=== PATIENT | female | born 1965 | race Caucasian/White ===

== ENCOUNTER 2022-08-26 12:54 | Inpatient (IN) | payer OTHER ==
--- OUTSIDE RECORDS SUMMARY | 2022-08-26 13:05 | XMS REPORT | Continuity of Care Document ---
:1965 Author Organization [facility] t Address [address] [place] [address] Dr. Prinec. [address] [place] [id number] Care Team Providers Name Role Phone Tho Conklin Attending Clinician Unavailable Problems This patient has no known problems. Allergies, Adverse Reactions, Alerts This patient has no known allergies or adverse reactions. Medications This patient has no known medications. Procedures This patient has no known procedures. Encounters Start End Encounter Admission Attending Care Care Encounter Source Date/Time Date/Time Type Type Clinicians Facility Department ID 2018-12-23 2018-12-23 Outpatient ELLEN Conklin [id number] [facility] 09:14:00 09:14:00 Tho Cobos 2018-12-23 2018-12-23 Outpatient ELLEN Conklin [id number] [facility] 08:56:00 08:56:00 Tho Cobos Results This patient has no known results.
--- NOTE | 2022-08-26 13:19 | RAD REPORT ---
EXAM DESCRIPTION: CT - Ct Stroke Brain Wo Cont - 08/26/2022 1:08 pm CLINICAL HISTORY: Left arm numbness COMPARISON: none TECHNIQUE: Computed axial tomography of the head was obtained. All CT scans are performed using dose optimization technique as appropriate and may include automated exposure control or mA/KV adjustment according to patient size. FINDINGS: An intracranial bleed is not seen . The ventricles are normal in caliber. No extra-axial fluid collection is noted. 1 centimeter low-density area right internal capsule Fluid within the sinuses/ mastoids is not seen. IMPRESSION: 1 centimeter low-density area right internal capsule probably lacunar infarct. Age is in determinate. MRI brain would helpful. Shannan of the emergency room notified 1:12 p.m. August 26, 2022
[2022-08-26 14:03] LABS: Absolute Lymphocytes (CBC) 1.7 K/uL (0.7-4.9); Hematocrit 37.2 % (36.0-45.0); Lymphocytes % 11.5 % (15.3-44.8); MCV 82.5 fL (80-100); MPV 6.8 fL (7.6-11.3); RBC Red Blood Cell Count 4.51 M/uL (3.86-4.86)
[2022-08-26] MEDS ORDERED: ATORVASTATIN 20 MG TAB ONE (14:05)
[2022-08-26] MEDS ORDERED: TENECTEPLASE 50 MG/10 ML VIAL IV ONE (14:06)
[2022-08-26 14:07] LABS: Protime INR 1.11
[2022-08-26] MEDS ORDERED: FOLIC ACID 5 MG/ML VIAL ONE (14:08)
[2022-08-26] MEDS ORDERED: ATORVASTATIN 80 MG TAB ONE (14:09)
[2022-08-26 14:18] LABS: Potassium 3.3 mmol/L (3.5-5.1)
--- NOTE | 2022-08-26 14:19 | RAD REPORT ---
EXAM DESCRIPTION: Marie Angio08/26/2022 2:02 pm CLINICAL HISTORY: Numbness COMPARISON: None TECHNIQUE: 50 cc Isovue 370 was administered intravenously. 3D MIP reconstruction performed All CT scans are performed using dose optimization technique as appropriate and may include automated exposure control or mA/KV adjustment according to patient size. FINDINGS: Mild plaque is present within common carotid, internal carotid and external carotid arteri es bilaterally. Right common carotid artery is tortuous Right vertebral artery is dominant. Left vertebral artery is hypoplastic. No high-grade stenosis seen. No dissection noted IMPRESSION: Mild plaque within the arteries. No high-grade stenosis seen NASCET criteria used. Mild 0-49% stenosis Moderate 50-69% stenosis Severe 70-99% stenosis
--- NOTE | 2022-08-26 14:20 | RAD REPORT ---
EXAM DESCRIPTION: CTHead angio08/26/2022 2:02 pm CLINICAL HISTORY: Numbness COMPARISON: None TECHNIQUE: CT angiogram of the head was obtained. 3D MIPS reconstruction performed. All CT scans are performed using dose optimization technique as appropriate and may include automated exposure control or mA/KV adjustment according to patient size. FINDINGS: The basilar, internal carotid, anterior cerebral, middle cerebral and posterior cerebral a rteries are normal caliber. An aneurysm is not seen. A significant stenosis is not noted. IMPRESSION: No acute abnormality is displayed
--- NOTE | 2022-08-26 14:29 | RAD REPORT ---
EXAM DESCRIPTION: CT - Angio Aorta For Dissection - 08/26/2022 2:03 pm CLINICAL HISTORY: . Chest and abd pain COMPARISON: None TECHNIQUE: Computed tomography angiography of the chest, abdomen pelvis were obtained. 100 cc Isovue 370 was administered intravenously. Coronal and sagittal reconstruction were performed. MIP 3D reconstruction was performed All CT scans are performed using dose optimization technique as appropriate and may include automated exposure control or mA/KV adjustment according to patient size. FINDINGS: An aortic dissection is not seen. An aortic aneurysm is not displayed. Mild plaque within the celiac and SMA. NILDA is patent. Mild plaque within abdominal aorta. A lung consolidation is not present. A pericardial effusion is not seen. A pleural effusion is not no maite. The liver,spleen, pancreas,adrenals and kidneys demonstrate no significant abnormality. There no evidence diverticulitis. Normal appendix 3.3 centimeter left ovarian cyst without significant free fluid Mild to moderate anterior subluxation L5 on S1. Spondylolysis L5 9 millimeter well-circumscribed mass right breast. Nonemergent mammogram recommended IMPRESSION: Negative for an aortic dissection.
--- NOTE | 2022-08-26 14:31 | RAD REPORT ---
EXAM DESCRIPTION: Azul Single View08/26/2022 1:32 pm CLINICAL HISTORY: Chest pain COMPARISON: 2019 FINDINGS: The lungs appear clear of acute infiltrate. The heart is normal size IMPRESSION: No acute abnormalities displayed
--- NOTE | 2022-08-26 15:07 | ER ---
Nurse's Notes [facility] Name: Lena Ambrocio Age: 57 yrs Sex: Female : 1965 Arrival Date: 08/26/2022 Time: 13:02 Bed 16 Private MD: Diagnosis: Cerebral infarct Presentation: 08/26 13:02 Chief complaint: Pt's states "she was at the nail salon getting her nails done aa5 when she started feeling her left arm go numb and having double vision, she drove back home and I brought her here". Sling noted to left arm, pt reports elbow fracture 2 weeks ago. Pt appears confused when answering questions. Pt reports double vision at this time. 13:02 Acuity: MONICA 2 aa5 13:02 Method Of Arrival: Wheelchair aa5 13:15 Coronavirus screen: Vaccine status:. Ebola Screen: Patient negative for fever greater em6 than or equal to 101.5 degrees Fahrenheit, and additional compatible Ebola Virus Disease symptoms. Initial Sepsis Screen: Does the patient meet any 2 criteria? No. Patient's initial sepsis screen is negative. Does the patient have a suspected source of infection? No. Patient's initial sepsis screen is negative. Risk Assessment: Do you want to hurt yourself or someone else? Patient reports no desire to harm self or others. Onset of symptoms was August 26, 2022 at 12:30. 13:49 No acute neurological deficit is noted. The patients blood glucose was checked before em6 arriving to the hospital and was found to be normal. Triage Assessment: 13:53 The onset of the patients symptoms was August 26, 2022 at 12:30. General: Appears in em6 no apparent distress. Behavior is cooperative. 13:56 Neuro: Reports blurred vision. em6 Stroke Activation: Symptom onset < 3 hours Physician: Stroke Attending; Name: ; Notified At: ; Arrived At: Physician: Chief Stroke Resident; Name: ; Notified At: ; Arrived At: Physician: Stroke Resident; Name: ; Notified At: ; Arrived At: Physician: ED Attending; Name: ; Notified At: ; Arrived At: Physician: ED Resident; Name: ; Notified At: ; Arrived At: Historical: - Allergies: 13:54 No Known Allergies; em6 - Home Meds: 13:54 amlodipine oral [Active]; Acetaminophen Oral [Active]; Ibuprofen Oral [Active]; em6 - PMHx: 13:54 Hypertensive disorder; em6 - Immunization history:: Adult Immunizations unknown. - Social history:: Smoking status: unknown. Screenin:46 Abuse screen: Denies threats or abuse. Nutritional screening: No deficits noted. em6 Tuberculosis screening: No symptoms or risk factors identified. Fall Risk No fall in past 12 months (0 pts). Secondary diagnosis (15 points) possible stroke. IV access (20 points). Ambulatory Aid- None/Bed Rest/Nurse Assist (0 pts). Gait- Impaired (20 pts.). Mental Status- Oriented to own ability (0 pts). Total Christian Fall Scale indicates High Risk Score (45 or more points). Assessment: 13:14 Reassessment: Pt back from CT scan . aa5 13:15 VAN Scoring: Arm Drift: Patients demonstrates NO arm weakness. Patient is VAN Negative. em6 Visual Disturbance:. The patient has not been NPO before screening. The patient is alert, and able to follow commands. The patient does not exhibit slurred or garbled speech. The patient is not exhibiting difficulty speaking. The patient does not exhibit difficulty understanding words. The patient is able to swallow own secretions with no drooling or need for suction. Patient tolerated one teaspoon of water. No drooling, immediate coughing, gurgling, or clearing of the throat was noted. The patient tolerated 90mL of water. No drooling, immediate coughing, gurgling, or clearing of the throat was noted. The patient passed the bedside swallow screening. Oral medications may be given as ordered. Contact Physician for further diet orders. Provider notified of bedside swallow screening results: Jose Addison NP. 13:15 TNKase (Tenecteplase) Screening: Indications: Definite evidence of stroke, ischemic, em6 embolic, or hypertensive: Yes. Treatment will start within 4.5 hours onset of symptoms: Yes. No evidence of intracranial hemorrhage or CT of head and no evidence of peripheral hemorrhage or recent CVA: Yes. Consent for thrombolytic therapy: Yes. 13:17 General: Appears uncomfortable, Behavior is cooperative, anxious. Pain: Complains of em6 pain in left arm Pain does not radiate. Pain level that patient reports is acceptable is 1 out of 10 on a pain scale. Quality of pain is described as sharp, Pain began 08/07/22 she has elbow fracture. she's currently on the sling. Neuro: Level of Consciousness is awake, alert, obeys commands, Oriented to person, place, time, situation, Stripper Cutter Machine are equal bilaterally Moves all extremities. Speech is normal, Facial symmetry appears normal, Pupils are PERRLA, Intact Reports blurred vision in left eye Denies headache. Cardiovascular: Heart tones present Patient's skin is warm and dry. Rhythm is sinus rhythm Chest pain is denied. Respiratory: Airway is patent Trachea midline Respiratory effort is even, unlabored, Respiratory pattern is regular, symmetrical, Breath sounds are clear bilaterally. GI: No signs and/or symptoms were reported involving the gastrointestinal system. : No signs and/or symptoms were reported regarding the genitourinary system. EENT: No signs and/or symptoms were reported regarding the EENT system. Derm: No signs and/or symptoms reported regarding the dermatologic system. Musculoskeletal: Range of motion: limited in left shoulder she had a fracture on 08/07/22 limited movement on shoulder due to pain with movement. 14:22 Reassessment: TNK medication given see TNK vital signs flow sheath.. em6 16:00 Reassessment: No changes from previously documented assessment. Patient and/or family jd3 updated on plan of care and expected duration. Pain level reassessed. Patient is alert, oriented x 3, equal unlabored respirations, skin warm/dry/pink. Patient states feeling better. 17:00 Reassessment: Patient and/or family updated on plan of care and expected duration. Pain jd3 level reassessed. Patient is alert, oriented x 3, equal unlabored respirations, skin warm/dry/pink. 18:00 Reassessment: Patient and/or family updated on plan of care and expected duration. Pain jd3 level reassessed. Patient is alert, oriented x 3, equal unlabored respirations, skin warm/dry/pink. 18:40 Reassessment: report attempt made. ICU reported to busy. jd3 19:15 Reassessment: Patient appears in no apparent distress at this time. Patient and/or jb4 family updated on plan of care and expected duration. Pain level reassessed. Patient is alert, oriented x 3, equal unlabored respirations, skin warm/dry/pink. Vital Signs: 13:15 BP 193 / 93; Pulse 81; Resp 20; Temp 98.1; Pulse Ox 97% on R/A; Weight 86.18 kg; Height em6 5 ft. 2 in. (157.48 cm); Pain 5/10; 14:22 BP 213 / ???; Pulse 93; Resp 20; Pulse Ox 96% on R/A; em6 14:37 BP 202 / 87; Pulse 86; Resp 20; Pulse Ox 95% on R/A; em6 14:52 BP 185 / 86; Pulse 75; Resp 18; Pulse Ox 95% on R/A; em6 15:30 BP 175 / 85; Pulse 81; Resp 16; Pulse Ox 96% on R/A; jd3 16:30 BP 178 / 84; Pulse 77; Resp 16; Pulse Ox 97% on R/A; jd3 17:45 BP 169 / 78; Pulse 71; Resp 16 S; Pulse Ox 96% on R/A; jd3 18:54 Pulse 80; Resp 17 S; Pulse Ox 100% on R/A; jd3 19:30 BP 165 / 99; Pulse 80; Resp 16; Pulse Ox 96% on R/A; jb4 13:15 Body Mass Index 34.75 (86.18 kg, 157.48 cm) em6 NIH Stroke Scale Scores: 13:15 NIHSS Score: 0 em6 13:31 NIHSS Score: 1 pm1 14:22 NIHSS Score: 0 em6 14:37 NIHSS Score: 0 em6 14:52 NIHSS Score: 0 em6 15:07 NIHSS Score: 0 em6 15:22 NIHSS Score: 0 em6 16:20 NIHSS Score: 0 jd3 17:20 NIHSS Score: 0 jd3 18:20 NIHSS Score: 0 jd3 ED Course: 13:02 Patient arrived in ED. iw 13:02 Arm band placed on. aa5 13:09 CT Stroke Brain w/o Contrast In Process Unspecified. EDMS 13:12 Jose Addison NP is PHCP. pm1 13:12 Rex Griggs MD is Attending Physician. pm1 13:15 Inserted saline lock: 22 gauge in right antecubital area, using aseptic technique. em6 Blood collected. placed by associate project manager. 13:18 Triage completed. aa5 13:28 Mcneill, Chuy, RN is Primary Nurse. jd3 13:34 Stroke CXR 1 View In Process Unspecified. EDMS 13:56 Patient has correct armband on for positive identification. laboratory monitor on. Pulse em6 ox on. NIBP on. Warm blanket given. 14:04 CT Head Angio In Process Unspecified. EDMS 14:04 CT Neck Angio In Process Unspecified. EDMS 14:05 CT Aorta for Dissection In Process Unspecified. EDMS 15:01 Enrique Rubin MD is Hospitalizing Provider. pm1 Administered Medications: 14:22 Drug: TNK FOR STROKE - Tenecteplase 0.25 mg/kg {Co-Signature: jjohn (Chuy Mcneill RN).} Route: IV; Rate: per protocol; Site: right antecubital; 15:22 Follow up: Response: No adverse reaction; IV Status: Completed infusion jd3 14:25 Drug: foLIC Acid 1 mg Route: IVPB; Site: right antecubital; em6 15:25 Follow up: Response: No adverse reaction; IV Status: Completed infusion jd3 14:25 Drug: Atorvastatin 80 mg Route: PO; em6 17:25 Follow up: Response: No adverse reaction jd3 15:45 Drug: NS 0.9% 500 ml Route: IV; Rate: bolus; Site: right antecubital; em6 16:45 Follow up: Response: No adverse reaction; IV Status: Completed infusion jd3 15:45 Drug: NS 0.9% 1000 ml Route: IV; Rate: 125 ml/hr; Site: right antecubital; em6 18:51 Follow up: Response: No adverse reaction; IV Status: Infusion continued upon admission jd3 15:50 Drug: Potassium Chloride 40 mEq Route: PO; em6 16:50 Follow up: Response: No adverse reaction jd3 Medication: 18:38 VIS not applicable for this client. jd3 Point of Care Testing: Blood Glucose: 13:56 Blood Glucose: 72 mg/dL; em6 Ranges: Outcome: 15:06 Decision to Hospitalize by Provider. pm1 20:23 Patient left the ED. mw2 NIH Stroke Scale - NIH Stroke Score Date: 08/26/2022 Time: 13:15 Total Score = 0 1a. Level of Consciousness (LOC) - 0(Alert) 1b. Level of Consciousness (LOC) (Month \\T\\ Age) - 0(Both) 1c. LOC Commands (Open \\T\\ Closes Eyes/Assembly Leader) - 0(Both) 2. Best Gaze (Lateral Gaze Paresis) - 0(Normal) 3. Visual Field Loss - 0(No visual loss) 4. Facial Palsy - 0(Normal) 5a. Left Arm: Motor (10-second hold) - 0(No drift) 5b. Right Arm: Motor (10-second hold) - 0(No drift) 6a. Left Leg: Motor (5-second hold - always test supine) - 0(No drift) 6b. Right Leg: Motor (5-second hold - always test supine) - 0(No drift) 7. Limb Ataxia (finger/nose \\T\\ heel/foy - test with eyes open) - 0(Absent) 8. Sensory Loss (pinprick arms/legs/face) - 0(Normal) 9. Best Language: Aphasia (description/naming/reading) - 0(No aphasia) 10. Dysarthria (speech clarity - read or repeat words) - 0(Normal) 11. Extinction and Inattention (visual/tactile/auditory/spatial/personal) - 0(No abnormality) Initials: em6 NIH Stroke Scale - NIH Stroke Score Date: 08/26/2022 Time: 13:31 Total Score = 1 1a. Level of Consciousness (LOC) - 0(Alert) 1b. Level of Consciousness (LOC) (Month \\T\\ Age) - 0(Both) 1c. LOC Commands (Open \\T\\ Closes Eyes/Assembly Leader) - 0(Both) 2. Best Gaze (Lateral Gaze Paresis) - 0(Normal) 3. Visual Field Loss - 0(No visual loss) 4. Facial Palsy - 0(Normal) 5a. Left Arm: Motor (10-second hold) - 0(No drift) 5b. Right Arm: Motor (10-second hold) - 0(No drift) 6a. Left Leg: Motor (5-second hold - always test supine) - 0(No drift) 6b. Right Leg: Motor (5-second hold - always test supine) - 0(No drift) 7. Limb Ataxia (finger/nose \\T\\ heel/foy - test with eyes open) - 0(Absent) 8. Sensory Loss (pinprick arms/legs/face) - 0(Normal) 9. Best Language: Aphasia (description/naming/reading) - 1(Mild to moderate aphasia) 10. Dysarthria (speech clarity - read or repeat words) - 0(Normal) 11. Extinction and Inattention (visual/tactile/auditory/spatial/personal) - 0(No abnormality) Initials: pm1 NIH Stroke Scale - NIH Stroke Score Date: 08/26/2022 Time: 14:22 Total Score = 0 1a. Level of Consciousness (LOC) - 0(Alert) 1b. Level of Consciousness (LOC) (Month \\T\\ Age) - 0(Both) 1c. LOC Commands (Open \\T\\ Closes Eyes/Assembly Leader) - 0(Both) 2. Best Gaze (Lateral Gaze Paresis) - 0(Normal) 3. Visual Field Loss - 0(No visual loss) 4. Facial Palsy - 0(Normal) 5a. Left Arm: Motor (10-second hold) - 0(No drift) 5b. Right Arm: Motor (10-second hold) - 0(No drift) 6a. Left Leg: Motor (5-second hold - always test supine) - 0(No drift) 6b. Right Leg: Motor (5-second hold - always test supine) - 0(No drift) 7. Limb Ataxia (finger/nose \\T\\ heel/foy - test with eyes open) - 0(Absent) 8. Sensory Loss (pinprick arms/legs/face) - 0(Normal) 9. Best Language: Aphasia (description/naming/reading) - 0(No aphasia) 10. Dysarthria (speech clarity - read or repeat words) - 0(Normal) 11. Extinction and Inattention (visual/tactile/auditory/spatial/personal) - 0(No abnormality) Initials: em6 NIH Stroke Scale - NIH Stroke Score Date: 08/26/2022 Time: 14:37 Total Score = 0 1a. Level of Consciousness (LOC) - 0(Alert) 1b. Level of Consciousness (LOC) (Month \\T\\ Age) - 0(Both) 1c. LOC Commands (Open \\T\\ Closes Eyes/Assembly Leader) - 0(Both) 2. Best Gaze (Lateral Gaze Paresis) - 0(Normal) 3. Visual Field Loss - 0(No visual loss) 4. Facial Palsy - 0(Normal) 5a. Left Arm: Motor (10-second hold) - 0(No drift) 5b. Right Arm: Motor (10-second hold) - 0(No drift) 6a. Left Leg: Motor (5-second hold - always test supine) - 0(No drift) 6b. Right Leg: Motor (5-second hold - always test supine) - 0(No drift) 7. Limb Ataxia (finger/nose \\T\\ heel/foy - test with eyes open) - 0(Absent) 8. Sensory Loss (pinprick arms/legs/face) - 0(Normal) 9. Best Language: Aphasia (description/naming/reading) - 0(No aphasia) 10. Dysarthria (speech clarity - read or repeat words) - 0(Normal) 11. Extinction and Inattention (visual/tactile/auditory/spatial/personal) - 0(No abnormality) Initials: [facility] NIH Stroke Scale - NIH Stroke Score Date: 08/26/2022 Time: 14:52 Total Score = 0 1a. Level of Consciousness (LOC) - 0(Alert) 1b. Level of Consciousness (LOC) (Month \\T\\ Age) - 0(Both) 1c. LOC Commands (Open \\T\\ Closes Eyes/Assembly Leader) - 0(Both) 2. Best Gaze (Lateral Gaze Paresis) - 0(Normal) 3. Visual Field Loss - 0(No visual loss) 4. Facial Palsy - 0(Normal) 5a. Left Arm: Motor (10-second hold) - 0(No drift) 5b. Right Arm: Motor (10-second hold) - 0(No drift) 6a. Left Leg: Motor (5-second hold - always test supine) - 0(No drift) 6b. Right Leg: Motor (5-second hold - always test supine) - 0(No drift) 7. Limb Ataxia (finger/nose \\T\\ heel/foy - test with eyes open) - 0(Absent) 8. Sensory Loss (pinprick arms/legs/face) - 0(Normal) 9. Best Language: Aphasia (description/naming/reading) - 0(No aphasia) 10. Dysarthria (speech clarity - read or repeat words) - 0(Normal) 11. Extinction and Inattention (visual/tactile/auditory/spatial/personal) - 0(No abnormality) Initials: [facility] NIH Stroke Scale - NIH Stroke Score Date: 08/26/2022 Time: 15:07 Total Score = 0 1a. Level of Consciousness (LOC) - 0(Alert) 1b. Level of Consciousness (LOC) (Month \\T\\ Age) - 0(Both) 1c. LOC Commands (Open \\T\\ Closes Eyes/Assembly Leader) - 0(Both) 2. Best Gaze (Lateral Gaze Paresis) - 0(Normal) 3. Visual Field Loss - 0(No visual loss) 4. Facial Palsy - 0(Normal) 5a. Left Arm: Motor (10-second hold) - 0(No drift) 5b. Right Arm: Motor (10-second hold) - 0(No drift) 6a. Left Leg: Motor (5-second hold - always test supine) - 0(No drift) 6b. Right Leg: Motor (5-second hold - always test supine) - 0(No drift) 7. Limb Ataxia (finger/nose \\T\\ heel/foy - test with eyes open) - 0(Absent) 8. Sensory Loss (pinprick arms/legs/face) - 0(Normal) 9. Best Language: Aphasia (description/naming/reading) - 0(No aphasia) 10. Dysarthria (speech clarity - read or repeat words) - 0(Normal) 11. Extinction and Inattention (visual/tactile/auditory/spatial/personal) - 0(No abnormality) Initials: em6 NIH Stroke Scale - NIH Stroke Score Date: 08/26/2022 Time: 15:22 Total Score = 0 1a. Level of Consciousness (LOC) - 0(Alert) 1b. Level of Consciousness (LOC) (Month \\T\\ Age) - 0(Both) 1c. LOC Commands (Open \\T\\ Closes Eyes/Assembly Leader) - 0(Both) 2. Best Gaze (Lateral Gaze Paresis) - 0(Normal) 3. Visual Field Loss - 0(No visual loss) 4. Facial Palsy - 0(Normal) 5a. Left Arm: Motor (10-second hold) - 0(No drift) 5b. Right Arm: Motor (10-second hold) - 0(No drift) 6a. Left Leg: Motor (5-second hold - always test supine) - 0(No drift) 6b. Right Leg: Motor (5-second hold - always test supine) - 0(No drift) 7. Limb Ataxia (finger/nose \\T\\ heel/foy - test with eyes open) - 0(Absent) 8. Sensory Loss (pinprick arms/legs/face) - 0(Normal) 9. Best Language: Aphasia (description/naming/reading) - 0(No aphasia) 10. Dysarthria (speech clarity - read or repeat words) - 0(Normal) 11. Extinction and Inattention (visual/tactile/auditory/spatial/personal) - 0(No abnormality) Initials: em6 NIH Stroke Scale - NIH Stroke Score Date: 08/26/2022 Time: 16:20 Total Score = 0 1a. Level of Consciousness (LOC) - 0(Alert) 1b. Level of Consciousness (LOC) (Month \\T\\ Age) - 0(Both) 1c. LOC Commands (Open \\T\\ Closes Eyes/Assembly Leader) - 0(Both) 2. Best Gaze (Lateral Gaze Paresis) - 0(Normal) 3. Visual Field Loss - 0(No visual loss) 4. Facial Palsy - 0(Normal) 5a. Left Arm: Motor (10-second hold) - 0(No drift) 5b. Right Arm: Motor (10-second hold) - 0(No drift) 6a. Left Leg: Motor (5-second hold - always test supine) - 0(No drift) 6b. Right Leg: Motor (5-second hold - always test supine) - 0(No drift) 7. Limb Ataxia (finger/nose \\T\\ heel/foy - test with eyes open) - 0(Absent) 8. Sensory Loss (pinprick arms/legs/face) - 0(Normal) 9. Best Language: Aphasia (description/naming/reading) - 0(No aphasia) 10. Dysarthria (speech clarity - read or repeat words) - 0(Normal) 11. Extinction and Inattention (visual/tactile/auditory/spatial/personal) - 0(No abnormality) Initials: jd3 NIH Stroke Scale - NIH Stroke Score Date: 08/26/2022 Time: 17:20 Total Score = 0 1a. Level of Consciousness (LOC) - 0(Alert) 1b. Level of Consciousness (LOC) (Month \\T\\ Age) - 0(Both) 1c. LOC Commands (Open \\T\\ Closes Eyes/Assembly Leader) - 0(Both) 2. Best Gaze (Lateral Gaze Paresis) - 0(Normal) 3. Visual Field Loss - 0(No visual loss) 4. Facial Palsy - 0(Normal) 5a. Left Arm: Motor (10-second hold) - 0(No drift) 5b. Right Arm: Motor (10-second hold) - 0(No drift) 6a. Left Leg: Motor (5-second hold - always test supine) - 0(No drift) 6b. Right Leg: Motor (5-second hold - always test supine) - 0(No drift) 7. Limb Ataxia (finger/nose \\T\\ heel/foy - test with eyes open) - 0(Absent) 8. Sensory Loss (pinprick arms/legs/face) - 0(Normal) 9. Best Language: Aphasia (description/naming/reading) - 0(No aphasia) 10. Dysarthria (speech clarity - read or repeat words) - 0(Normal) 11. Extinction and Inattention (visual/tactile/auditory/spatial/personal) - 0(No abnormality) Initials: [facility] NIH Stroke Scale - NIH Stroke Score Date: 08/26/2022 Time: 18:20 Total Score = 0 1a. Level of Consciousness (LOC) - 0(Alert) 1b. Level of Consciousness (LOC) (Month \\T\\ Age) - 0(Both) 1c. LOC Commands (Open \\T\\ Closes Eyes/Assembly Leader) - 0(Both) 2. Best Gaze (Lateral Gaze Paresis) - 0(Normal) 3. Visual Field Loss - 0(No visual loss) 4. Facial Palsy - 0(Normal) 5a. Left Arm: Motor (10-second hold) - 0(No drift) 5b. Right Arm: Motor (10-second hold) - 0(No drift) 6a. Left Leg: Motor (5-second hold - always test supine) - 0(No drift) 6b. Right Leg: Motor (5-second hold - always test supine) - 0(No drift) 7. Limb Ataxia (finger/nose \\T\\ heel/foy - test with eyes open) - 0(Absent) 8. Sensory Loss (pinprick arms/legs/face) - 0(Normal) 9. Best Language: Aphasia (description/naming/reading) - 0(No aphasia) 10. Dysarthria (speech clarity - read or repeat words) - 0(Normal) 11. Extinction and Inattention (visual/tactile/auditory/spatial/personal) - 0(No abnormality) Initials: jorge luis Signatures: Dispatcher [employer] EDMS Taylor Ortiz RN BRYCE iw Hannah Schneider RN RN aa5 Jose Addison, CEMENT MIXER DRIVER CEMENT MIXER DRIVER pm1 Estuardo Coronado, BRYCE WU jb4 Chuy Mcneill RN RN jd3 TacosJensen kantami mw2 Estefany Chavez, BRYCE WU em6 Chuy Mcneill RN jd3 Corrections: (The following items were deleted from the chart) 13:18 13:02 Chief complaint: Pt's states "she was at the nail salon getting aa5 her nails done when she started feeling her left arm go numb and having double vision". Sling noted to left arm, pt reports elbow fracture 2 weeks ago. Pt appears confused when answering questions. Pt reports double vision at this time. aa5 14:01 13:43 The patient has not been NPO before screening. The patient is alert, and em6 able to follow commands. The patient does not exhibit slurred or garbled speech. The patient is not exhibiting difficulty speaking. The patient does not exhibit difficulty understanding words. The patient is able to swallow own secretions with no drooling or need for suction. Patient tolerated one teaspoon of water. No drooling, immediate coughing, gurgling, or clearing of the throat was noted. The patient tolerated 90mL of water. No drooling, immediate coughing, gurgling, or clearing of the throat was noted. The patient passed the bedside swallow screening. Oral medications may be given as ordered. Contact Physician for further diet orders. Provider notified of bedside swallow screening results: Rex Griggs MD em6 14:01 13:43 VAN Scoring: Arm Drift: Patients demonstrates NO arm weakness. Patient is em6 VAN Negative. Visual Disturbance: em6 14:01 13:43 TNKase (Tenecteplase) Screening: Contraindications: Blood pressure is em6 more than 185/110: Yes. em6 14:01 13:43 Pain: em6 em6 14:01 13:43 Neuro: Don Agitation-Sedation Scale (RASS): 0 - Alert and Calm Level em6 of Consciousness is awake, alert, obeys commands, Oriented to person, place, time, situation, em6 14:56 13:25 VAN Scoring: Arm Drift: Patients demonstrates NO arm weakness. Patient is em6 VAN Negative. Visual Disturbance: em6 14:56 13:25 The patient has not been NPO before screening. The patient is alert, and em6 able to follow commands. The patient does not exhibit slurred or garbled speech. The patient is not exhibiting difficulty speaking. The patient does not exhibit difficulty understanding words. The patient is able to swallow own secretions with no drooling or need for suction. Patient tolerated one teaspoon of water. No drooling, immediate coughing, gurgling, or clearing of the throat was noted. The patient tolerated 90mL of water. No drooling, immediate coughing, gurgling, or clearing of the throat was noted. The patient passed the bedside swallow screening. Oral medications may be given as ordered. Contact Physician for further diet orders. Provider notified of bedside swallow screening results: Rex Griggs MD em6 14:56 13:25 TNKase (Tenecteplase) Screening: Contraindications: Blood pressure is em6 more than 185/110: Yes. em6 14:56 13:25 Neuro: Don Agitation-Sedation Scale (RASS): 0 - Alert and Calm Level em6 of Consciousness is awake, alert, obeys commands, Oriented to person, place, time, situation, em6 15:20 13:17 Neuro: Don Agitation-Sedation Scale (RASS): 0 - Alert and Calm Level em6 of Consciousness is awake, alert, obeys commands, Oriented to person, place, time, situation, em6 16:29 13:43 NIHSS Score: 0 em6 em6 16:29 13:25 NIHSS Score: 0 em6 em6 16:29 13:17 NIHSS Score: 0 em6 em6 16:29 13:17 VAN Scoring: Arm Drift: Patients demonstrates NO arm weakness. Patient is em6 VAN Negative. Visual Disturbance: em6 16:29 13:17 The patient has not been NPO before screening. The patient is alert, and em6 able to follow commands. The patient does not exhibit slurred or garbled speech. The patient is not exhibiting difficulty speaking. The patient does not exhibit difficulty understanding words. The patient is able to swallow own secretions with no drooling or need for suction. Patient tolerated one teaspoon of water. No drooling, immediate coughing, gurgling, or clearing of the throat was noted. The patient tolerated 90mL of water. No drooling, immediate coughing, gurgling, or clearing of the throat was noted. The patient passed the bedside swallow screening. Oral medications may be given as ordered. Contact Physician for further diet orders. Provider notified of bedside swallow screening results: Rex Griggs MD em6 16: 13:17 TNKase (Tenecteplase) Screening: Contraindications: Blood pressure is em6 more than 185/110: Yes. em6 16: 13:17 Musculoskeletal: Range of motion: limited in left shoulder she had a em6 fracture on 08/07/22 and can move elbow but limited movement on shoulder due to pain with movement em6 16: 14:37 NIHSS Score: 0 em6 em6
--- NOTE | 2022-08-26 15:07 | EDPHYS ---
Physician Documentation [facility] Name: Lena Ambrocio Age: 57 yrs Sex: Female : 1965 Arrival Date: 08/26/2022 Time: 13:02 Bed 16 Private MD: ADAN Physician Rex Griggs HPI: 08/26 13:31 This 57 yrs old Female presents to ER via Wheelchair with complaints of S/S of Possible pm1 Stroke. 13:31 The patient's problem is reported as paresthesias, in left upper extremity, double pm1 vision and blurred vision. Onset: The symptoms/episode began/occurred today, at 11:30. Duration: This was a single incident, double vision and left arm numbness has improved. Patient with decreased mental status per and patient is having difficulty expressing herself, appropriate words and sentences but slow to get out. Not her baseline per . Context: symptoms became apparent while patient was sitting getting a pedicure, started with numbness to left arm and double vision. Symptoms have improved but patient now with blurry vision and difficulty expressing herself. The symptoms are alleviated by nothing. The symptoms are aggravated by nothing. Associated signs and symptoms: Pertinent positives: chest pain, Pertinent negatives: shortness of breath, weakness. Severity of symptoms: in the emergency department the symptoms have improved. Patient's baseline: Neuro: alert and fully oriented, Motor: no deficits, Ambulation: walks without assistance, Speech: normal. The patient has not experienced similar symptoms in the past. The patient has not recently seen a physician. Patient with left elbow fracture at work about three weeks ago. Treatment has been sling pending evaluation by orthopedics due pending approval from workman's compensation. Historical: - Allergies: 13:54 No Known Allergies; em6 - Home Meds: 13:54 amlodipine oral [Active]; Acetaminophen Oral [Active]; Ibuprofen Oral [Active]; em6 - PMHx: 13:54 Hypertensive disorder; em6 - Immunization history:: Adult Immunizations unknown. - Social history:: Smoking status: unknown. ROS: 13:31 Constitutional: Negative for fever, chills, and weight loss, Neck: Negative for injury, pm1 pain, and swelling, Respiratory: Negative for shortness of breath, cough, wheezing, and pleuritic chest pain, Abdomen/GI: Negative for abdominal pain, nausea, vomiting, diarrhea, and constipation. 13:31 ENT: Negative for injury, pain, and discharge. 13:31 Back: Negative for injury and pain, MS/Extremity: Negative for injury and deformity, Skin: Negative for injury, rash, and discoloration. 13:31 Eyes: Positive for blurry vision, double vision, Negative for pain. 13:31 Cardiovascular: Positive for chest pain, Negative for edema, palpitations. 13:31 Neuro: Positive for speech changes, Negative for dizziness, weakness. 13:31 All other systems are negative. Exam: 13:31 Constitutional: This is a well developed, well nourished patient who is awake, alert, pm1 and in no acute distress. Head/Face: Normocephalic, atraumatic. 13:31 Skin: Warm, dry with normal turgor. Normal color with no rashes, no lesions, and no evidence of cellulitis. MS/ Extremity: Pulses equal, no cyanosis. Neurovascular intact. Full, normal range of motion. 13:31 Eyes: Periorbital structures: no acute changes, Pupils: no acute changes, normal size, normal reaction to light, Extraocular movements: intact throughout, Conjunctiva: no acute changes, no injection, Visual bassett: Patient reports double vision and blurry vision with cardinal field of view with each eye from 11 to 1 o'clock . Nystagmus: is not appreciated. 13:31 ENT: Exam is negative for acute changes, External ear(s): no acute changes, Ear canal(s): no acute changes, TM's: no acute changes, Mouth: Lips: normal, moist, Oral mucosa: normal, pink and intact, moist, Tongue: Patient does not appear to be able to stick tongue out last her lips, Posterior pharynx: no acute changes, Voice: no acute changes. 13:31 Neck: Exam negative for acute changes, ROM/movement: is normal, is supple, no acute changes. 13:31 Cardiovascular: Exam negative for acute changes, Rate: normal, Rhythm: regular, Pulses: no pulse deficits are appreciated, Heart sounds: normal, normal S1and S2. 13:31 Respiratory: Exam negative for acute changes, respiratory distress, shortness of breath, Breath sounds: are clear throughout. 13:31 Abdomen/GI: Exam negative for acute changes, Inspection: abdomen appears normal, Palpation: abdomen is soft and non-tender, in all quadrants. 13:31 Neuro: Orientation: to person, place, time, situation, Mentation: is normal, slow to respond, Cranial nerves: as noted on eye exam. extraocular movements are intact, Facial palsy and sensory deficits are absent. no gross hearing deficit,. Nystagmus is absent. Motor: moves all fours, strength is 5/5 in all extremities, Sensation: no obvious gross deficits, seizure activity, is not displayed by the patient. 13:31 Psych: Behavior/mood is cooperative, Affect is animated, Oriented to person, place, time. 13:31 Radiologist reports: 1 cm low density area right internal capsule probably lacunar pm1 infarct. Age in indeterminate Vital Signs: 13:15 BP 193 / 93; Pulse 81; Resp 20; Temp 98.1; Pulse Ox 97% on R/A; Weight 86.18 kg; Height em6 5 ft. 2 in. (157.48 cm); Pain 5/10; 14:22 BP 213 / ???; Pulse 93; Resp 20; Pulse Ox 96% on R/A; em6 14:37 BP 202 / 87; Pulse 86; Resp 20; Pulse Ox 95% on R/A; em6 14:52 BP 185 / 86; Pulse 75; Resp 18; Pulse Ox 95% on R/A; em6 15:30 BP 175 / 85; Pulse 81; Resp 16; Pulse Ox 96% on R/A; jd3 16:30 BP 178 / 84; Pulse 77; Resp 16; Pulse Ox 97% on R/A; jd3 17:45 BP 169 / 78; Pulse 71; Resp 16 S; Pulse Ox 96% on R/A; jd3 18:54 Pulse 80; Resp 17 S; Pulse Ox 100% on R/A; jd3 19:30 BP 165 / 99; Pulse 80; Resp 16; Pulse Ox 96% on R/A; jb4 13:15 Body Mass Index 34.75 (86.18 kg, 157.48 cm) em6 NIH Stroke Scale Scores: 13:15 NIHSS Score: 0 em6 13:31 NIHSS Score: 1 pm1 14:22 NIHSS Score: 0 em6 14:37 NIHSS Score: 0 em6 14:52 NIHSS Score: 0 em6 15:07 NIHSS Score: 0 em6 15:22 NIHSS Score: 0 em6 16:20 NIHSS Score: 0 jd3 17:20 NIHSS Score: 0 jd3 18:20 NIHSS Score: 0 jd3 MDM: 13:12 Patient medically screened. pm1 13:31 Physician consultation: Rex Griggs MD regarding consult, patient's condition, pm1 recommends CT angio head, neck, and chest rule out dissection. Consultation with Dr. Thomas for TNK. 13:41 Physician consultation: Max Thomas MD regarding consult, patient's condition, pm1 requests consultation with radiologist regarding CT if possible to determine age of lacunar infarct. Folic acid, high dose statin, and TNK after consultation with radiologist. 13:56 Physician consultation: Juan Whaley MD regarding consult, patient's condition, pm1 unable to determine from CT acuity of the stroke. Therefore I am unable to get MRI now and to get the results in time to determine age of lacunar infarct. however patient has presentation of posterior CVA and I will give TNK. Discussed my decision with Dr. Griggs and he agrees with giving TNK. 13:58 Counseling: I had a detailed discussion with the patient and/or guardian regarding: the pm1 historical points, exam findings, and any diagnostic results supporting the discharge/admit diagnosis, lab results, radiology results, the need for further work-up and treatment in the hospital, need for TNK. in the room and he agrees with giving the patient the treatment. 14:03 Data reviewed: vital signs. Data interpreted: Pulse oximetry: on room air is 97 %. pm1 Interpretation: normal. 15:03 ED course: Patient reports blurry vision present only with left eye at the 11 to 1 pm1 o'clock is her only symptom at the moment. Patient's is able to respond quickly and express her thoughts quickly. NIHSS is now = [address] Thomas with the results. After discussion with him we can admit the patient here with him as consult. 08/26 13:03 Order name: Basic Metabolic Panel; Complete Time: 14:08/26 13:03 Order name: CBC with Diff; Complete Time: 14:22 08/26 13:03 Order name: Protime (+inr); Complete Time: 14:08/26 13:03 Order name: Ptt, Activated; Complete Time: 14:22 08/26 13:38 Order name: Glucose, Ancillary Testing; Complete Time: 14:03 EDKS 08/26 14:43 Order name: CREATININE WHOLE BLOOD; Complete Time: 14:44 EDKS 08/26 16:25 Order name: Thyroid Stimulating Hormone [facility] 08/26 16:25 Order name: CBC with Automated Diff EDKS 08/26 16:25 Order name: CBC with Automated Diff EDMS 08/26 16:25 Order name: CBC with Automated Diff EDMS 08/26 16:25 Order name: CBC with Automated Diff EDMS 08/26 16:25 Order name: Comprehensive Metabolic Panel [facility] 08/26 16:25 Order name: Comprehensive Metabolic Panel [facility] 08/26 16:25 Order name: Comprehensive Metabolic Panel [facility] 08/26 13:03 Order name: CT Stroke Brain w/o Contrast; Complete Time: 13:21 08/26 13:03 Order name: Stroke CXR 1 View; Complete Time: 14:36 iw 08/26 13:30 Order name: CT Head Angio; Complete Time: 14:22 pm08/26 13:30 Order name: CT Neck Angio; Complete Time: 14:22 pm08/26 13:30 Order name: CT Aorta for Dissection; Complete Time: 14:36 pm08/26 16:26 Order name: Comprehensive Metabolic Panel [facility] 08/26 16:26 Order name: Lipid Profile [facility] 08/26 16:26 Order name: Lipid Profile [facility] 08/26 16:26 Order name: Magnesium [facility] 08/26 16:26 Order name: Magnesium [facility] 08/26 16:26 Order name: Phosphorus [facility] 08/26 16:26 Order name: Phosphorus [facility] 08/26 16:26 Order name: Protime (+INR) [facility] 08/26 16:26 Order name: Protime (+INR) [facility] 08/26 16:31 Order name: SARS RAPID pm1 08/26 17:51 Order name: SARS-COV-2 Antigen Rapid; Complete Time: 18:10 [facility] 08/26 13:03 Order name: EKG; Complete Time: 13:04 08/26 13:03 Order name: Accucheck; Complete Time: 14:02 08/26 13:03 Order name: Cardiac monitoring; Complete Time: 14:44 08/26 13:03 Order name: EKG - Nurse/Tech; Complete Time: 14:02 08/26 13:03 Order name: IV Saline Lock; Complete Time: 14:02 08/26 13:03 Order name: Labs collected and sent; Complete Time: 14:02 08/26 13:03 Order name: NPO; Complete Time: 14:02 08/26 13:03 Order name: O2 Per Protocol; Complete Time: 14:02 08/26 13:03 Order name: O2 Sat Monitoring; Complete Time: 14:02 08/26 13:03 Order name: Stroke Swallow Screen; Complete Time: 14:02 08/26 16:25 Order name: CONS Physician Consult [facility] 08/26 16:25 Order name: Heart Healthy EDKS 08/26 19:27 Order name: RAD; Complete Time: 21:37 EDMS EC:25 Rate is 80 beats/min. Rhythm is regular, Normal Sinus Rhythm. QRS [place] is Normal. [place] pm1 interval is normal. QRS interval is normal. QT interval is normal. No ST changes noted. Clinical impression: normal sinus rhythm, cannont rule out anterior infarct, age indetermined, T wave abnormality, consider lateral ischemia, abnormal ECG. Interpreted by me. Administered Medications: 14:22 Drug: TNK FOR STROKE - Tenecteplase 0.25 mg/kg {Co-Signature: kishor (Chuy Mcneill RN).} Route: IV; Rate: per protocol; Site: right antecubital; 15:22 Follow up: Response: No adverse reaction; IV Status: Completed infusion jd3 14:25 Drug: foLIC Acid 1 mg Route: IVPB; Site: right antecubital; em6 15:25 Follow up: Response: No adverse reaction; IV Status: Completed infusion jd3 14:25 Drug: Atorvastatin 80 mg Route: PO; em6 17:25 Follow up: Response: No adverse reaction jd3 15:45 Drug: NS 0.9% 500 ml Route: IV; Rate: bolus; Site: right antecubital; em6 16:45 Follow up: Response: No adverse reaction; IV Status: Completed infusion jd3 15:45 Drug: NS 0.9% 1000 ml Route: IV; Rate: 125 ml/hr; Site: right antecubital; em6 18:51 Follow up: Response: No adverse reaction; IV Status: Infusion continued upon admission jd3 15:50 Drug: Potassium Chloride 40 mEq Route: PO; em6 16:50 Follow up: Response: No adverse reaction jd3 Point of Care Testing: Blood Glucose: 13:56 Blood Glucose: 72 mg/dL; em6 Ranges: Critical Glucose Levels:Adult <50 mg/dl or >400 mg/dl <40 mg/dl or >180 mg/dl Disposition Summary: 08/26/22 15:06 Hospitalization Ordered Hospitalization Status: Inpatient Admission pm1 Provider: Enrique Rubin pm1 Condition: Stable pm1 Problem: new pm1 Symptoms: have improved pm1 Bed/Room Type: Standard pm1 Location: Intensive Care Unit(08/26/22 16:32) pm1 Room Assignment: 6-(08/26/22 18:20) dw Diagnosis - Cerebral infarct pm1 Forms: - Medication Reconciliation Form pm1 - SBAR form pm1 NIH Stroke Scale - NIH Stroke Score Date: 08/26/2022 Time: 13:15 Total Score = 0 1a. Level of Consciousness (LOC) - 0(Alert) 1b. Level of Consciousness (LOC) (Month \T\ Age) - 0(Both) 1c. LOC Commands (Open \T\ Closes Eyes/Director Security Management) - 0(Both) 2. Best Gaze (Lateral Gaze Paresis) - 0(Normal) 3. Visual Field Loss - 0(No visual loss) 4. Facial Palsy - 0(Normal) 5a. Left Arm: Motor (10-second hold) - 0(No drift) 5b. Right Arm: Motor (10-second hold) - 0(No drift) 6a. Left Leg: Motor (5-second hold - always test supine) - 0(No drift) 6b. Right Leg: Motor (5-second hold - always test supine) - 0(No drift) 7. Limb Ataxia (finger/nose \T\ heel/foy - test with eyes open) - 0(Absent) 8. Sensory Loss (pinprick arms/legs/face) - 0(Normal) 9. Best Language: Aphasia (description/naming/reading) - 0(No aphasia) 10. Dysarthria (speech clarity - read or repeat words) - 0(Normal) 11. Extinction and Inattention (visual/tactile/auditory/spatial/personal) - 0(No abnormality) Initials: em6 NIH Stroke Scale - NIH Stroke Score Date: 08/26/2022 Time: 13:31 Total Score = 1 1a. Level of Consciousness (LOC) - 0(Alert) 1b. Level of Consciousness (LOC) (Month \T\ Age) - 0(Both) 1c. LOC Commands (Open \T\ Closes Eyes/[employer]) - 0(Both) 2. Best Gaze (Lateral Gaze Paresis) - 0(Normal) 3. Visual Field Loss - 0(No visual loss) 4. Facial Palsy - 0(Normal) 5a. Left Arm: Motor (10-second hold) - 0(No drift) 5b. Right Arm: Motor (10-second hold) - 0(No drift) 6a. Left Leg: Motor (5-second hold - always test supine) - 0(No drift) 6b. Right Leg: Motor (5-second hold - always test supine) - 0(No drift) 7. Limb Ataxia (finger/nose \T\ heel/foy - test with eyes open) - 0(Absent) 8. Sensory Loss (pinprick arms/legs/face) - 0(Normal) 9. Best Language: Aphasia (description/naming/reading) - 1(Mild to moderate aphasia) 10. Dysarthria (speech clarity - read or repeat words) - 0(Normal) 11. Extinction and Inattention (visual/tactile/auditory/spatial/personal) - 0(No abnormality) Initials: pm1 NIH Stroke Scale - NIH Stroke Score Date: 08/26/2022 Time: 14:22 Total Score = 0 1a. Level of Consciousness (LOC) - 0(Alert) 1b. Level of Consciousness (LOC) (Month \T\ Age) - 0(Both) 1c. LOC Commands (Open \T\ Closes Eyes/[employer]) - 0(Both) 2. Best Gaze (Lateral Gaze Paresis) - 0(Normal) 3. Visual Field Loss - 0(No visual loss) 4. Facial Palsy - 0(Normal) 5a. Left Arm: Motor (10-second hold) - 0(No drift) 5b. Right Arm: Motor (10-second hold) - 0(No drift) 6a. Left Leg: Motor (5-second hold - always test supine) - 0(No drift) 6b. Right Leg: Motor (5-second hold - always test supine) - 0(No drift) 7. Limb Ataxia (finger/nose \T\ heel/foy - test with eyes open) - 0(Absent) 8. Sensory Loss (pinprick arms/legs/face) - 0(Normal) 9. Best Language: Aphasia (description/naming/reading) - 0(No aphasia) 10. Dysarthria (speech clarity - read or repeat words) - 0(Normal) 11. Extinction and Inattention (visual/tactile/auditory/spatial/personal) - 0(No abnormality) Initials: 6 NIH Stroke Scale - NIH Stroke Score Date: 08/26/2022 Time: 14:37 Total Score = 0 1a. Level of Consciousness (LOC) - 0(Alert) 1b. Level of Consciousness (LOC) (Month \T\ Age) - 0(Both) 1c. LOC Commands (Open \T\ Closes Eyes/[employer]) - 0(Both) 2. Best Gaze (Lateral Gaze Paresis) - 0(Normal) 3. Visual Field Loss - 0(No visual loss) 4. Facial Palsy - 0(Normal) 5a. Left Arm: Motor (10-second hold) - 0(No drift) 5b. Right Arm: Motor (10-second hold) - 0(No drift) 6a. Left Leg: Motor (5-second hold - always test supine) - 0(No drift) 6b. Right Leg: Motor (5-second hold - always test supine) - 0(No drift) 7. Limb Ataxia (finger/nose \T\ heel/foy - test with eyes open) - 0(Absent) 8. Sensory Loss (pinprick arms/legs/face) - 0(Normal) 9. Best Language: Aphasia (description/naming/reading) - 0(No aphasia) 10. Dysarthria (speech clarity - read or repeat words) - 0(Normal) 11. Extinction and Inattention (visual/tactile/auditory/spatial/personal) - 0(No abnormality) Initials: 6 NIH Stroke Scale - NIH Stroke Score Date: 08/26/2022 Time: 14:52 Total Score = 0 1a. Level of Consciousness (LOC) - 0(Alert) 1b. Level of Consciousness (LOC) (Month \T\ Age) - 0(Both) 1c. LOC Commands (Open \T\ Closes Eyes/Director Security Management) - 0(Both) 2. Best Gaze (Lateral Gaze Paresis) - 0(Normal) 3. Visual Field Loss - 0(No visual loss) 4. Facial Palsy - 0(Normal) 5a. Left Arm: Motor (10-second hold) - 0(No drift) 5b. Right Arm: Motor (10-second hold) - 0(No drift) 6a. Left Leg: Motor (5-second hold - always test supine) - 0(No drift) 6b. Right Leg: Motor (5-second hold - always test supine) - 0(No drift) 7. Limb Ataxia (finger/nose \T\ heel/foy - test with eyes open) - 0(Absent) 8. Sensory Loss (pinprick arms/legs/face) - 0(Normal) 9. Best Language: Aphasia (description/naming/reading) - 0(No aphasia) 10. Dysarthria (speech clarity - read or repeat words) - 0(Normal) 11. Extinction and Inattention (visual/tactile/auditory/spatial/personal) - 0(No abnormality) Initials: em6 NIH Stroke Scale - NIH Stroke Score Date: 08/26/2022 Time: 15:07 Total Score = 0 1a. Level of Consciousness (LOC) - 0(Alert) 1b. Level of Consciousness (LOC) (Month \T\ Age) - 0(Both) 1c. LOC Commands (Open \T\ Closes Eyes/Director Security Management) - 0(Both) 2. Best Gaze (Lateral Gaze Paresis) - 0(Normal) 3. Visual Field Loss - 0(No visual loss) 4. Facial Palsy - 0(Normal) 5a. Left Arm: Motor (10-second hold) - 0(No drift) 5b. Right Arm: Motor (10-second hold) - 0(No drift) 6a. Left Leg: Motor (5-second hold - always test supine) - 0(No drift) 6b. Right Leg: Motor (5-second hold - always test supine) - 0(No drift) 7. Limb Ataxia (finger/nose \T\ heel/foy - test with eyes open) - 0(Absent) 8. Sensory Loss (pinprick arms/legs/face) - 0(Normal) 9. Best Language: Aphasia (description/naming/reading) - 0(No aphasia) 10. Dysarthria (speech clarity - read or repeat words) - 0(Normal) 11. Extinction and Inattention (visual/tactile/auditory/spatial/personal) - 0(No abnormality) Initials: 6 NIH Stroke Scale - NIH Stroke Score Date: 08/26/2022 Time: 15:22 Total Score = 0 1a. Level of Consciousness (LOC) - 0(Alert) 1b. Level of Consciousness (LOC) (Month \T\ Age) - 0(Both) 1c. LOC Commands (Open \T\ Closes Eyes/Director Security Management) - 0(Both) 2. Best Gaze (Lateral Gaze Paresis) - 0(Normal) 3. Visual Field Loss - 0(No visual loss) 4. Facial Palsy - 0(Normal) 5a. Left Arm: Motor (10-second hold) - 0(No drift) 5b. Right Arm: Motor (10-second hold) - 0(No drift) 6a. Left Leg: Motor (5-second hold - always test supine) - 0(No drift) 6b. Right Leg: Motor (5-second hold - always test supine) - 0(No drift) 7. Limb Ataxia (finger/nose \T\ heel/foy - test with eyes open) - 0(Absent) 8. Sensory Loss (pinprick arms/legs/face) - 0(Normal) 9. Best Language: Aphasia (description/naming/reading) - 0(No aphasia) 10. Dysarthria (speech clarity - read or repeat words) - 0(Normal) 11. Extinction and Inattention (visual/tactile/auditory/spatial/personal) - 0(No abnormality) Initials: [facility] NIH Stroke Scale - NIH Stroke Score Date: 08/26/2022 Time: 16:20 Total Score = 0 1a. Level of Consciousness (LOC) - 0(Alert) 1b. Level of Consciousness (LOC) (Month \T\ Age) - 0(Both) 1c. LOC Commands (Open \T\ Closes Eyes/Director Security Management) - 0(Both) 2. Best Gaze (Lateral Gaze Paresis) - 0(Normal) 3. Visual Field Loss - 0(No visual loss) 4. Facial Palsy - 0(Normal) 5a. Left Arm: Motor (10-second hold) - 0(No drift) 5b. Right Arm: Motor (10-second hold) - 0(No drift) 6a. Left Leg: Motor (5-second hold - always test supine) - 0(No drift) 6b. Right Leg: Motor (5-second hold - always test supine) - 0(No drift) 7. Limb Ataxia (finger/nose \T\ heel/foy - test with eyes open) - 0(Absent) 8. Sensory Loss (pinprick arms/legs/face) - 0(Normal) 9. Best Language: Aphasia (description/naming/reading) - 0(No aphasia) 10. Dysarthria (speech clarity - read or repeat words) - 0(Normal) 11. Extinction and Inattention (visual/tactile/auditory/spatial/personal) - 0(No abnormality) Initials: jd3 NIH Stroke Scale - NIH Stroke Score Date: 08/26/2022 Time: 17:20 Total Score = 0 1a. Level of Consciousness (LOC) - 0(Alert) 1b. Level of Consciousness (LOC) (Month \T\ Age) - 0(Both) 1c. LOC Commands (Open \T\ Closes Eyes/Director Security Management) - 0(Both) 2. Best Gaze (Lateral Gaze Paresis) - 0(Normal) 3. Visual Field Loss - 0(No visual loss) 4. Facial Palsy - 0(Normal) 5a. Left Arm: Motor (10-second hold) - 0(No drift) 5b. Right Arm: Motor (10-second hold) - 0(No drift) 6a. Left Leg: Motor (5-second hold - always test supine) - 0(No drift) 6b. Right Leg: Motor (5-second hold - always test supine) - 0(No drift) 7. Limb Ataxia (finger/nose \T\ heel/foy - test with eyes open) - 0(Absent) 8. Sensory Loss (pinprick arms/legs/face) - 0(Normal) 9. Best Language: Aphasia (description/naming/reading) - 0(No aphasia) 10. Dysarthria (speech clarity - read or repeat words) - 0(Normal) 11. Extinction and Inattention (visual/tactile/auditory/spatial/personal) - 0(No abnormality) Initials: jd3 NIH Stroke Scale - NIH Stroke Score Date: 08/26/2022 Time: 18:20 Total Score = 0 1a. Level of Consciousness (LOC) - 0(Alert) 1b. Level of Consciousness (LOC) (Month \T\ Age) - 0(Both) 1c. LOC Commands (Open \T\ Closes Eyes/Director Security Management) - 0(Both) 2. Best Gaze (Lateral Gaze Paresis) - 0(Normal) 3. Visual Field Loss - 0(No visual loss) 4. Facial Palsy - 0(Normal) 5a. Left Arm: Motor (10-second hold) - 0(No drift) 5b. Right Arm: Motor (10-second hold) - 0(No drift) 6a. Left Leg: Motor (5-second hold - always test supine) - 0(No drift) 6b. Right Leg: Motor (5-second hold - always test supine) - 0(No drift) 7. Limb Ataxia (finger/nose \T\ heel/foy - test with eyes open) - 0(Absent) 8. Sensory Loss (pinprick arms/legs/face) - 0(Normal) 9. Best Language: Aphasia (description/naming/reading) - 0(No aphasia) 10. Dysarthria (speech clarity - read or repeat words) - 0(Normal) 11. Extinction and Inattention (visual/tactile/auditory/spatial/personal) - 0(No abnormality) Initials: jd3 Signatures: Dispatcher [employer] Mera Toussaint RN RN dw Williams, Irene, RN RN iw Marinas, Patrick, [employer] pm1 Estefany Chavez, BRYCE RN em6 Chuy Mcneill RN jd3 Chuy Mcneill RN jd3 Corrections: (The following items were deleted from the chart) 16:32 15:06 Telemetry/MedSurg (Inpatient) pm1 pm1 16:32 15:06 pm1 pm1 18:20 16:32 pm1 dw
[2022-08-26] MEDS ORDERED: POTASSIUM CL SA 10 MEQ TAB PO ONE ×2 (15:44→16:00)
[2022-08-26] MEDS ORDERED: NA CHLORIDE 0.9% 1,000 ML ONE (15:45)
[2022-08-26] MEDS ORDERED: NA CHLORIDE 0.9% 500 ML ONE (15:45)
--- NOTE | 2022-08-26 16:21 | P.HP ---
Certification for Inpatient Patient admitted to: Inpatient With expected LOS: >2 Midnights Patient will require the following post-hospital care: None Practitioner: I am a practitioner with admitting privileges, knowledge of patient current condition, hospital course, and medical plan of care. Services: Services provided to patient in accordance with Admission requirements found in Title 42 Section 412.3 of the Code of Federal Regulations Patient History Date of Service: 08/26/22 Reason for admission: Rule out CVA s/p TNK History of Present Illness: Mrs. Lena Ambrocio is a pleasant 57 year old female who has a past medical history of hypertension, anxiety, and depression who presents to the [facility] Emergency Department for left upper extremity numbness/tingling and diplopia. She reports that, this afternoon while getting a pedicure, she developed sudden- onset left upper extremity numbness/tingling, This was followed by diffuse diaphoresis, blurry vision, and diplopia. She states that, within 45 minutes, she was able to drive home. Her was concerned, so he brought her in to the Emergency Department for further evaluation. She denies any prior similar episodes. She denies any obvious inciting or alleviating factors. She did not take any medications prior to arrival. On review of systems, she denies any fevers, chills, headaches, dizziness, syncope, weakness, chest pain, palpitations, shortness of breath, wheezing, cough, abdominal pain, nausea/vomiting, diarrhea, constipation, hematochezia, melena, dysuria, hematuria, myalgia, or any other symptoms. Upon presentation, her vital signs were notable for a blood pressure of 193/93. Her laboratory studies were notable for a WBC count of 14,600 and a potassium of 3.3. CT head revealed, "1 centimeter low-density area right internal capsule probably lacunar infarct. Age is indeterminate. MRI brain would helpful." CT head angiogram revealed, "no acute abnormality is displayed." CT neck angiogram revealed, "Mild plaque within the arteries. No high-grade stenosis seen." Neurology was consulted in the Emergency Department, and recommended pushing tenecteplase, which was given in the Emergency Department. She was admitted to the General Internal Medicine service for further evaluation. Allergies No Known Allergies Allergy (Unverified 08/26/22 17:57) Home medications list reviewed: Yes Home Medications: Amlodipine Besylate 5 mg PO DAILY 08/26/22 Codeine/APAP [Tylenol #3*] 1 tab PO Q6HP PRN 08/26/22 - Past Medical/Surgical History -: Hypertension -: Anxiety -: Depression Past Surgical History: Patient denies surgical history - Family History Family History: Reviewed- Non-Contributory - Social History Smoking Status: Former smoker (Smoked for 32 years total, quit 10 years ago) Alcohol use: No CD- Drugs: No Caffeine use: No Review of Systems 10-point ROS is otherwise unremarkable General: Unremarkable Eyes: Vision Change (diplopia) ENT: Unremarkable Respiratory: Unremarkable Cardiovascular: Unremarkable Gastrointestinal: Unremarkable Genitourinary: Unremarkable Musculoskeletal: Unremarkable Integumentary: Unremarkable Neurological: Numbness (left upper extremity) Lymphatics: Unremarkable Physical Examination - Vital Signs Temperature: 98.1 F Blood Pressure: 193/93 Pulse: 81 Respirations: 20 Pulse Ox (%): 97 (room air) - Physical Exam General: Alert, In no apparent distress, Oriented x3 HEENT: Atraumatic, PERRLA, Mucous membr. moist/pink, EOMI, Sclerae nonicteric Neck: Supple, JVD not distended Respiratory: Clear to auscultation bilaterally, Normal air movement Cardiovascular: No edema, Regular rate/rhythm, Normal S1 S2, No gallops, No rubs, No murmurs Capillary refill: <2 Seconds Gastrointestinal: Normal bowel sounds, Soft and benign, Non-distended, No tenderness, No rebound, No guarding Musculoskeletal: No clubbing, Tenderness (left elbow) Integumentary: No rashes Neurological: Normal speech, Normal strength at 5/5 x4 extr, Normal tone, Sensation intact, Cranial nerves 3-12 intact, Normal reflexes 2+, Normal affect - Studies Laboratory Data (last 24 hrs) 08/26/22 13:30: PT 12.2, INR 1.11, APTT 32.4 08/26/22 13:30: WBC 14.60 H, Hgb 12.5, Hct 37.2, Plt Count 240 08/26/22 13:30: Sodium 138, Potassium 3.3 L, BUN 20 H, Creatinine 0.97, Glucose 130 H Assessment and Plan - Plan NIH Stroke Scale 1a. Level of consciousness: 0 - Alert; keenly responsive 1b. LOC questions: 0 - Both questions right 1c. LOC commands: 0 - Performs both tasks 2. Best Gaze: 0 - Normal 3. Visual: 0 - No visual loss 4. Facial Palsy: 0 - Normal symmetry 5a. Motor left arm: 0 - No drift for 10 seconds 5b. Motor right arm: 0 - No drift for 10 seconds 6a. Motor left le - No drift for 5 seconds 6b. Motor right le - No drift for 5 seconds 7. Limb ataxia: 0 - No ataxia 8. Sensory: 0 - Normal; no sensory loss 9. Best Language: 0 - Normal; no aphasia 10. Dysarthria: 0 - Normal 11. Extinction and Inattention: 0 - No abnormality 12. 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 Thomas - recommendations appreciated - Per Dr. Thomas, goal SBP 140-160 mmHg over next 3-5 days - Recommends obtaining MRI head ~24 hours post TNK - ordered for 08/27/2022 @ 16:00 - If negative for intracranial bleeding, plan to start aspirin + clopidogrel - Admit to ICU post- TNK - No neurologic deficits on my exam - NIHSS = 0 - CT head = "1 centimeter low-density area right internal capsule probably lacunar infarct. Age is indeterminate. MRI brain would helpful." - CT head angiogram = "no acute abnormality is displayed" - CT neck angiogram = "mild plaque within the arteries. No high-grade stenosis seen." - Ordered transthoracic echocardiogram with bubble study - Consult PT/OT - Ordered risk profile: Hgb A1c, lipid panel, TSH - Started atorvastatin + folic acid - q4hr neurochecks # Reported Left Elbow Fracture - Reports that she fell onto her left elbow about 1-2 weeks ago. She states that she was told it was fractured - Ordered left elbow x-rays - If fracture is confirmed, consult Orthopedic Surgery - Symptomatic management # Mild Hypokalemia - Replace as needed # Well-Circumscribed Right Breast Mass (9 mm) # Left Ovarian Cyst (3.3 cm) # Anxiety # Depression - Follow-up with PCP/ObGyn for further evaluation/treatment Enrique Rubin M.D. Plan to discharge in: Greater than 2 days - Advance Directives Does patient have a Living Will: No Does patient have a Durable POA for Healthcare: No - Code Status/Comfort Care Code Status Assessed: Yes Code Status: Full Code
[2022-08-26 17:51] LABS: SARS-CoV-2 Antigen Rapid Res Negative (Negative)
--- NOTE | 2022-08-26 19:26 | RAD REPORT ---
EXAM DESCRIPTION: RAD - Elbow Left 3 View - 08/26/2022 7:08 pm CLINICAL HISTORY: Left elbow pain FINDINGS: No fracture or dislocation is seen.
[2022-08-26] MEDS: ATORVASTATIN 40 MG TAB PO SCH (21:00)
[2022-08-26] MEDS: AMLODIPINE 5 MG TAB PO SCH (21:18)
[2022-08-27 05:01] LABS: Absolute Lymphocytes (CBC) 1.3 K/uL (0.7-4.9); Hematocrit 35.2 % (36.0-45.0); Lymphocytes % 15.3 % (15.3-44.8); MCV 83.2 fL (80-100); MPV 6.2 fL (7.6-11.3); RBC Red Blood Cell Count 4.23 M/uL (3.86-4.86)
[2022-08-27 05:11] LABS: Protime INR 1.07
[2022-08-27 05:17] LABS: Albumin 3.3 g/dL (3.4-5.0); Bilirubin Total 0.6 mg/dL (0.2-1.0); Magnesium 2.2 mg/dL (1.8-2.4); Phosphorus 2.9 mg/dL (2.5-4.9); Potassium 3.4 mmol/L (3.5-5.1); Protein, Total 6.9 g/dL (6.4-8.2); Thyroid Stimulating Hormone 3.27 uIU/mL (0.360-3.740)
[2022-08-27] MEDS: ACETAMINOPHEN 500 MG TAB PO PRN ×3 (05:25→21:58)
[2022-08-27 05:29] VITALS: BMI 39.0
[2022-08-27] MEDS: FOLIC ACID 1 MG TABLET PO SCH (08:12)
[2022-08-27] MEDS ORDERED: POTASSIUM CL SA 10 MEQ TAB PO ONE (09:00)
--- NOTE | 2022-08-27 13:08 | EKG ---
Test Date: 2022-08-26 Test Time: 13:37:02 Transport Driver: JOSY MEASUREMENT RESULTS: Intervals: Rate: 80 VA: 166 QRSD: 90 QT: 360 QTc: 415 Shelly: P: 78 VA: 166 QRS: 62 T: 148 INTERPRETIVE STATEMENTS: Normal sinus rhythm Cannot rule out Anterior infarct, age undetermined T wave abnormality, consider lateral ischemia Abnormal ECG No previous ECG available for comparison Electronically Signed On 08-27-22 13:05:23 CDT by Ferny Liu
--- NOTE | 2022-08-27 14:11 | P.PN ---
Subjective Date of Service: 08/27/22 Chief Complaint: Rule out CVA s/p TNK Subjective: Improving No acute events overnight. She reports that her diplopia and left upper extremity numbness have completely resolved. She reports that she is feeling much better this morning. Review of Systems 10-point ROS is otherwise unremarkable Physical Examination - Vital Signs Temperature: 97 F Blood Pressure: 133/73 Pulse: 72 Respirations: 17 Pulse Ox (%): 94 - Studies Laboratory Data (last 24 hrs) 08/26/22 13:30: Sodium 138, Potassium 3.3 L, BUN 20 H, Creatinine 0.97, Glucose 130 H Assessment And Plan - Plan - Physical Exam General: Alert, In no apparent distress, Oriented x3 HEENT: Atraumatic, PERRLA, Mucous membr. moist/pink, EOMI, Sclerae nonicteric Neck: Supple, JVD not distended Respiratory: Clear to auscultation bilaterally, Normal air movement Cardiovascular: No edema, Regular rate/rhythm, Normal S1 S2, No gallops, No rubs, No murmurs Capillary refill: <2 Seconds Gastrointestinal: Normal bowel sounds, Soft and benign, Non-distended, No te nderness, No rebound, No guarding Musculoskeletal: No clubbing, Tenderness (left elbow) Integumentary: No rashes Neurological: Normal speech, Normal strength at 5/5 x4 extr, Normal tone, Sensation intact, Cranial nerves 3-12 intact, Normal reflexes 2+, Normal affect - Plan NIH Stroke Scale 1a. Level of consciousness: 0 - Alert; keenly responsive 1b. LOC questions: 0 - Both questions right 1c. LOC commands: 0 - Performs both tasks 2. Best Gaze: 0 - Normal 3. Visual: 0 - No visual loss 4. Facial Palsy: 0 - Normal symmetry 5a. Motor left arm: 0 - No drift for 10 seconds 5b. Motor right arm: 0 - No drift for 10 seconds 6a. Motor left le - No drift for 5 seconds 6b. Motor right le - No drift for 5 seconds 7. Limb ataxia: 0 - No ataxia 8. Sensory: 0 - Normal; no sensory loss 9. Best Language: 0 - Normal; no aphasia 10. Dysarthria: 0 - Normal 11. Extinction and Inattention: 0 - No abnormality 12. 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 Thomas - recommendations appreciated - Per Dr. Thomas, goal SBP 140-160 mmHg over next 3-5 days - MRI head ~24 hours post TNK - ordered for 08/27/2022 @ 16:00 - If negative for intracranial bleeding, plan to start aspirin + clopidogrel - Admit to ICU post- TNK - No neurologic deficits on my exam - NIHSS = 0 - CT head = "1 centimeter low-density area right internal capsule probably lacunar infarct. Age is indeterminate. MRI brain would helpful." - CT head angiogram = "no acute abnormality is displayed" - CT neck angiogram = "mild plaque within the arteries. No high-grade stenosis seen." - Ordered transthoracic echocardiogram with bubble study - Consult PT/OT - Ordered risk profile: - Hgb A1c = 5.7 % - Lipid panel = TC 179, TG 232, LDL 95, HDL 38 - TSH = 38 - Started atorvastatin + folic acid - q1hr neurochecks # Reported Left Elbow Fracture - Reports that she fell onto her left elbow about 1-2 weeks ago. She states that she was told it was fractured - Ordered left elbow x-ray = "no fracture or dislocation is seen" - Symptomatic management # Mild Hypokalemia - Replace as needed # Well-Circumscribed Right Breast Mass (9 mm) # Left Ovarian Cyst (3.3 cm) # Anxiety # Depression - Follow-up with PCP/ObGyn for further evaluation/treatment If MRI brain WNL, plan to down grade to Med/Surg this afternoon Enrique Rubin M.D.
--- NOTE | 2022-08-27 16:12 | RAD REPORT ---
EXAM DESCRIPTION: MRI - Brain W/Wo Cont - 08/27/2022 3:28 pm CLINICAL HISTORY: Left arm numbness COMPARISON: head CT August 26, 2022 TECHNIQUE: Axial, sagittal, and coronal magnetic images of the brain were obtained. 20 cc MultiHance administered intravenously FINDINGS: Small areas increased signal are present within basal ganglia and left thalamus having the appearance of old lacunar infarctions. Mild signal is present within periventricular, deep and subcortical white matter likely ischemic hernandez ges secondary to small vessel disease The ventricles are normal in caliber. Diffusion-weighted/ ADC mapping sequences do not demonstrate evidence of an acute infarction. No abnormal enhancement within the brain is seen. An extra-axial fluid collection is not noted. Fluid within the sinuses/mastoids is not seen IMPRESSION: No acute intracranial abnormality displayed
[2022-08-27] MEDS: AMLODIPINE 5 MG TAB PO SCH (19:51)
[2022-08-27] MEDS: ATORVASTATIN 40 MG TAB PO SCH (19:51)
[2022-08-27] MEDS: HYDRALAZINE HCL 20 MG/ML VIAL IV PRN (21:17)
--- NOTE | 2022-08-28 02:01 | CON ---
Consultation called because of stroke. History Of Present Illness: Ms. Ambrocio is a 57-year-old patient with long-standing hypertension, anxi ety, and depression, who comes to [facility] likely with an hour and a half to 2 hours of on set of sudden left upper extremity numbness, weakness, tingling, and some facial involvement with jian rred vision and double vision. She was having her nails done when the event occurred and she did go home within about 45 minutes of onset and she was brought by her to the emergency room for ev aluation. Her emergency room evaluation revealed initial NIH Stroke Scale was 0, but as the patient was continued to be evaluated, she was found to have the deficit as noted above and NIH Stroke Scale elevated to around 4. She did receive TNKs after she had a negative PET-CT scan for any acute ischem ic or hemorrhagic change. Her CT angiogram did not reveal any high-grade stenosis in the neck or int racerebral vessels. The patient was sent to the ICU with neuro checks and has had some improvements in deficits. Per ICU note, her neuro checks revealed no focal deficits with an NIH Stroke Scale of 0 . Our subsequent brain MRI done earlier today revealed no acute ischemic or hemorrhagic change, shannon dalila, there were areas of increased signal in the basal ganglia and left thalamus, which had the appea tano of old lacunar infarcts. She had no hemorrhagic conversion. She was not on anti-platelet medications prior to the event. She is now on folic acid 1 mg daily, Li pitor 40 mg at bedtime, Norvasc 5 mg at bedtime along with Apresoline as needed. She will be started on anti-platelet medication 24 hours after TNKs. Past Medical History: As noted. Allergies: NO KNOWN DRUG ALLERGIES. Past Surgical History: None. Family History: Noncontributory. Social History: History of smoking, quit 10 years ago. No alcohol or IV drug use. Review of Systems: Aside from mentioned above, which is double vision and some numbness and weakness on left side, she h as no other deficits. She has no recent fevers, chills, nausea, vomiting, myalgias, arthralgias, deysi h, headache, or weight change. No psychiatric issues or gastrointestinal issues. Physical Examination: Vital Signs: Blood pressure 165/99, pulse 79, respiratory rate 16, temperature 97, oxygen saturation 96% to 97% on room air. Weight 213 pounds, height 5 feet 2 inches, BMI 39. General: Ms. Ambrocio is resting in ICU bed 3, now in no acute distress. HEENT: She is normocephalic, atraumatic. Sclerae anicteric. Oropharynx is moist and pink. Neck: Supple. Chest: Clear. Heart: Regular. Extremities: Show no significant edema, cyanosis, or clubbing. Neurological: She is alert and oriented to person, place, time, and situation. No cranial nerve def icits. No focal motor, coordination, or sensory deficits. She was evaluated by physical therapist, was able to take 18 steps with bilateral handrails and she did ambulate independently without an assi stive device. Assessment: Ms. Ambrocio is a 57-year-old patient with history of lacunar strokes, most likely secondar y to uncontrolled hypertension. She has a lipid panel showing LDL of 95, HDL of 38. Liver function studies unremarkable. She had mild hypokalemia and blood sugar is 130s. Hemoglobin A1c was 5.7 and note her COVID testing was negative. She did receive TNKs and has returned to normal functioning per the patient with NIH Stroke Scale of 0. Plan: Aspirin 81 mg, Plavix 75 mg, folic acid 1 mg, Lipitor 40 mg at night. The patient was counseled on modifying other risk factors for her strokes, including no tobacco or al cohol use. She may still benefit from a program of regular exercise; however, as she does not have any significa nt deficits, she did not qualify for physical therapy. She may be discharged home in the morning and follow up with Dr. Thomas's clinic within a month. KAZ/KYLE Voice ID: [id number] Report ID: [id number]
[2022-08-28 05:49] LABS: Absolute Lymphocytes (CBC) 1.4 K/uL (0.7-4.9); Hematocrit 36.2 % (36.0-45.0); Lymphocytes % 20.7 % (15.3-44.8); MCV 82.6 fL (80-100); MPV 6.3 fL (7.6-11.3); RBC Red Blood Cell Count 4.39 M/uL (3.86-4.86)
[2022-08-28 06:13] LABS: Albumin 3.4 g/dL (3.4-5.0); Bilirubin Total 0.5 mg/dL (0.2-1.0); Potassium 3.5 mmol/L (3.5-5.1)
--- NOTE | 2022-08-28 07:44 | P.DS ---
Admission Date: 08/26/22 Discharge Date: 08/28/22 Disposition: ROUTINE DISCHARGE Discharge Condition: GOOD Reason for Admission: Rule out CVA s/p TNK Brief History of Present Illness: Mrs. Lena Ambrocio is a pleasant 57 year old female who has a past medical history of hypertension, anxiety, and depression who presents to the [facility] Emergency Department for left upper extremity numbness/tingling and diplopia. She reports that, this afternoon while getting a pedicure, she developed sudden- onset left upper extremity numbness/tingling, This was followed by diffuse diaphoresis, blurry vision, and diplopia. She states that, within 45 minutes, she was able to drive home. Her was concerned, so he brought her in to the Emergency Department for further evaluation. She denies any prior similar episodes. She denies any obvious inciting or alleviating factors. She did not take any medications prior to arrival. On review of systems, she denies any fevers, chills, headaches, dizziness, syncope, weakness, chest pain, palpitations, shortness of breath, wheezing, cough, abdominal pain, nausea/vomiting, diarrhea, constipation, hematochezia, melena, dysuria, hematuria, myalgia, or any other symptoms. Upon presentation, her vital signs were notable for a blood pressure of 193/93. Her laboratory studies were notable for a WBC count of 14,600 and a potassium of 3.3. CT head revealed, "1 centimeter low-density area right internal capsule probably lacunar infarct. Age is indeterminate. MRI brain would helpful." CT head angiogram revealed, "no acute abnormality is displayed." CT neck angiogram revealed, "Mild plaque within the arteries. No high-grade stenosis seen." Neurology was consulted in the Emergency Department, and recommended pushing tenecteplase, which was given in the Emergency Department. She was admitted to the General Internal Medicine service for further evaluation. Vital Signs/Physical Exam: Temp Pulse Resp BP Pulse Ox 98.4 F 71 19 154/86 H 96 08/28/22 04:00 08/28/22 04:00 08/28/22 04:00 08/28/22 04:00 08/28/22 04:00 Laboratory Data at Discharge: WBC 6.60 K/uL (4.3-10.9) 08/28/22 05:30 Hgb 12.2 g/dL (12.0-15.0) 08/28/22 05:30 Hct 36.2 % (36.0-45.0) 08/28/22 05:30 Plt Count 223 K/uL (152-406) 08/28/22 05:30 PT 11.8 SECONDS (9.5-12.5) 08/27/22 04:26 INR 1.07 08/27/22 04:26 APTT 32.4 SECONDS (24.3-36.9) 08/26/22 13:30 Sodium 139 mmol/L (136-145) 08/28/22 05:30 Potassium 3.5 mmol/L (3.5-5.1) 08/28/22 05:30 BUN 15 mg/dL (7-18) 08/28/22 05:30 Creatinine 0.64 mg/dL (0.55-1.3) 08/28/22 05:30 Glucose 119 mg/dL (74-106) H 08/28/22 05:30 Phosphorus 2.9 mg/dL (2.5-4.9) 08/27/22 04:26 Magnesium 2.2 mg/dL (1.8-2.4) 08/27/22 04:26 Total Bilirubin 0.5 mg/dL (0.2-1.0) 08/28/22 05:30 AST 11 U/L (15-37) L 08/28/22 05:30 ALT 24 U/L (12-78) 08/28/22 05:30 Alkaline Phosphatase 103 U/L (45-117) 08/28/22 05:30 Triglycerides 232 mg/dL (<150) H 08/27/22 04:26 Cholesterol 179 mg/dL (<200) 08/27/22 04:26 HDL Cholesterol 38 mg/dL (40-60) L 08/27/22 04:26 Cholesterol/HDL Ratio 4.71 08/27/22 04:26 Home Medications: Amlodipine Besylate 5 mg PO BEDTIME 08/26/22 Codeine/APAP [Tylenol #3*] 1 tab PO Q6HP PRN 08/26/22 Aspirin Chewable [Aspirin Chewable*] 81 mg PO DAILY tab.chew 08/28/22 Atorvastatin Calcium [Lipitor] 40 mg PO BEDTIME #30 tab 08/28/22 Clopidogrel Bisulfate [Plavix] 75 mg PO DAILY #30 tab 08/28/22 Folic Acid 1 mg PO DAILY #30 08/28/22 New Medications: Folic Acid 1 mg PO DAILY #30 Atorvastatin Calcium [Lipitor] 40 mg PO BEDTIME #30 tab Clopidogrel Bisulfate [Plavix] 75 mg PO DAILY #30 tab Physician Discharge Instructions: 1. Please schedule a follow-up appointment with your PCP (ELENA Hummel) in 3-5 days 2. Please schedule a follow-up appointment with Neurology (Dr. Thomas) in 1-2 weeks Diet: AHA Activity: Ad diomedes Followup: Max Thomas MD [ASSOCIATE-ACTIVE - CAN ADMIT] - ANN HUMMEL [Primary Care Provider] -
[2022-08-28] MEDS: FOLIC ACID 1 MG TABLET PO SCH (07:56)
[2022-08-28] MEDS: ASPIRIN 81 MG CHEWABLE TABLET PO SCH (07:56)
[2022-08-28] MEDS: ACETAMINOPHEN 500 MG TAB PO PRN ×2 (07:57→17:59)
[2022-08-28] MEDS: CLOPIDOGREL 75 MG TABLET PO SCH (07:57)
[2022-08-28] MEDS: HYDRALAZINE HCL 20 MG/ML VIAL IV PRN (07:57)
[2022-08-28] MEDS ORDERED: lisinopriL 10 MG TAB PO SCH (09:00)
[2022-08-28] MEDS ORDERED: POTASSIUM CL SA 10 MEQ TAB PO ONE (09:00)
[2022-08-28] MEDS ORDERED: ACETAMINOPHEN 500 MG TAB PO ONE (09:15)
--- NOTE | 2022-08-28 09:26 | ECHO ---
HEIGHT: 5 ft 2 in WEIGHT: 213 lb 11.2 oz DATE OF STUDY: 08/27/[address]: Enrique Rubin MD 2-DIMENSIONAL: YES M.MODE: YES DOPPLER: YES COLOR FLOW: YES TDS: NO PORTABLE: YES DEFINITY: NO BUBBLE STUDY: YES DIAGNOSIS: STROKE EVALUATION CARDIAC HISTORY: CATHERIZATION: NO SURGERY: NO PROSTHETIC VALVE: NO PACEMAKER: NO MEASUREMENTS (cm) DIASTOLIC (NORMALS) SYSTOLIC (NORMALS) IVSd 1.1 (0.6-1.2) LA Diam 3.4 (1.9-4.0) LVEF 78% LVIDd 4.8 (3.5-5.7) LVIDs 2.6 (2.0-3.5) %FS 47% LVPWd 1.1 (0.6-1.2) Ao Diam 2.8 (2.0-3.7) 2 DIMENSIONAL ASSESSMENT: RIGHT ATRIUM: NORMAL LEFT ATRIUM: NORMAL RIGHT VENTRICLE: NORMAL LEFT VENTRICLE: NORMAL TRICUSPID VALVE: NORMAL MITRAL VALVE: NORMAL PULMONIC VALVE: NORMAL AORTIC VALVE: NORMAL PERICARDIAL EFFUSION: NONE AORTIC ROOT: NORMAL LEFT VENTRICULAR WALL MOTION: NORMAL. DOPPLER/COLOR FLOW: NORMAL. COMMENTS: NORMAL 2D ECHO WITH DOPPLER. NEGATIVE BUBBLE STUDY. NO ATRIAL SEPTAL DEFECT. TECHNOLOGIST: KADEEM EMANUEL
[2022-08-28] MEDS: LOSARTAN POTASSIUM 50 MG TABLET PO SCH (10:25)
[2022-08-28 11:21] VITALS: O2SAT 94
[2022-08-28] MEDS: carvediloL 3.125 MG TAB PO SCH ×2 (13:56→18:00)
[2022-08-28] MEDS ORDERED: HYDRALAZINE HCL 20 MG/ML VIAL IV PRN (16:33)
--- NOTE | 2022-08-28 17:40 | RAD REPORT ---
EXAM DESCRIPTION: CT - Head Brain Wo Cont - 08/28/2022 5:32 pm CLINICAL HISTORY: Headache, double vision, dizziness, hypertension COMPARISON: Ct Stroke Brain Wo Cont dated 08/26/2022; Brain W/Wo Cont dated 08/27/2022 TECHNIQUE: Axial 5 mm thick images of the head were obtained without IV contrast. All CT scans are performed using dose optimization technique as appropriate and may include automated exposure control or mA/KV adjustment according to patient size. FINDINGS: No intracranial hemorrhage, mass, edema or shift of mid-line structures. No acute infarcti on changes seen. No cortical edema or sulcal effacement. No significant atrophy changes. Ventricles a re normal in size. . Patient does have some patchy heterogeneous attenuation in the cerebral white ma tter consistent with chronic ischemic change. This would be greater than expected for patient age. Mastoid air cells and visualized portions of the paranasal sinuses are clear. No acute bony findings. IMPRESSION: No acute intracranial finding identifiable. Scattered cerebral white matter chronic ischemic changes are similar to earlier imaging.
[2022-08-28] MEDS: ATORVASTATIN 40 MG TAB PO SCH (20:50)
[2022-08-28] MEDS: AMLODIPINE 5 MG TAB PO SCH (20:50)
--- NOTE | 2022-08-28 23:12 | P.PN ---
Subjective Date of Service: 08/28/22 Chief Complaint: Rule out CVA s/p TNK This morning, she appeared to have significantly improved and reported no neurologic deficits. Initially planned to discharge, but had a tough time controlling her blood pressure, so will start additional medications and monitor an additional day. She and her are in agreement with this plan. Her only symptom this morning is a mild headache, which resolves with acetaminophen. Review of Systems 10-point ROS is otherwise unremarkable Neurological: Other (headache) Physical Examination - Vital Signs Temperature: 97.3 F Blood Pressure: 141/64 Pulse: 75 Respirations: 16 Pulse Ox (%): 92 Assessment And Plan - Plan - Physical Exam General: Alert, In no apparent distress, Oriented x3 HEENT: Atraumatic, PERRLA, Mucous membr. moist/pink, EOMI, Sclerae nonicteric Neck: Supple, JVD not distended Respiratory: Clear to auscultation bilaterally, Normal air movement Cardiovascular: No edema, Regular rate/rhythm, Normal S1 S2, No gallops, No rubs, No murmurs Capillary refill: <2 Seconds Gastrointestinal: Normal bowel sounds, Soft and benign, Non-distended, No tenderness, No rebound, No guarding Musculoskeletal: No clubbing, Tenderness (left elbow) Integumentary: No rashes Neurological: Normal speech, Normal strength at 5/5 x4 extr, Normal tone, Sensation intact, Cranial nerves 3-12 intact, Normal reflexes 2+, Normal affect - Plan NIH Stroke Scale 1a. Level of consciousness: 0 - Alert; keenly responsive 1b. LOC questions: 0 - Both questions right 1c. LOC commands: 0 - Performs both tasks 2. Best Gaze: 0 - Normal 3. Visual: 0 - No visual loss 4. Facial Palsy: 0 - Normal symmetry 5a. Motor left arm: 0 - No drift for 10 seconds 5b. Motor right arm: 0 - No drift for 10 seconds 6a. Motor left le - No drift for 5 seconds 6b. Motor right le - No drift for 5 seconds 7. Limb ataxia: 0 - No ataxia 8. Sensory: 0 - Normal; no sensory loss 9. Best Language: 0 - Normal; no aphasia 10. Dysarthria: 0 - Normal 11. Extinction and Inattention: 0 - No abnormality 12. 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 Thomas - recommendations appreciated - Per Dr. Thomas, goal SBP 140-160 mmHg over next 3-5 days - MRI head ~24 hours post TNK - ordered for 08/27/2022 @ 16:00 - If negative for intracranial bleeding, plan to start aspirin + clopidogrel - Admit to ICU post- TNK - No neurologic deficits on my exam - NIHSS = 0 - CT head = "1 centimeter low-density area right internal capsule probably lacunar infarct. Age is indeterminate. MRI brain would helpful." - CT head angiogram = "no acute abnormality is displayed" - CT neck angiogram = "mild plaque within the arteries. No high-grade stenosis seen." - Transthoracic echocardiogram = "NORMAL 2D ECHO WITH DOPPLER. NEGATIVE BUBBLE STUDY. NO ATRIAL SEPTAL DEFECT. " - Consult PT/OT - Ordered risk profile: - Hgb A1c = 5.7 % - Lipid panel = TC 179, TG 232, LDL 95, HDL 38 - TSH = 38 - Started atorvastatin + folic acid - Started aspirin + clopidogrel - q1hr neurochecks # Reported Left Elbow Fracture - Reports that she fell onto her left elbow about 1-2 weeks ago. She states that she was told it was fractured - Ordered left elbow x-ray = "no fracture or dislocation is seen" - Symptomatic management # Mild Hypokalemia - Replace as needed # Well-Circumscribed Right Breast Mass (9 mm) # Left Ovarian Cyst (3.3 cm) # Anxiety # Depression - Follow-up with PCP/ObGyn for further evaluation/treatment Unable to discharge today due to high blood pressures s/p tenecteplase. Will start losartan and carvedilol and monitor an additional day. Enrique Rubin M.D.
[2022-08-29] MEDS: carvediloL 3.125 MG TAB PO SCH (05:33)
[2022-08-29 06:15] LABS: Absolute Lymphocytes (CBC) 1.6 K/uL (0.7-4.9); Hematocrit 37.6 % (36.0-45.0); Lymphocytes % 22.8 % (15.3-44.8); MPV 6.4 fL (7.6-11.3); RBC Red Blood Cell Count 4.59 M/uL (3.86-4.86)
[2022-08-29 06:30] LABS: Albumin 3.5 g/dL (3.4-5.0); Bilirubin Total 0.4 mg/dL (0.2-1.0); Potassium 3.6 mmol/L (3.5-5.1); Protein, Total 7.2 g/dL (6.4-8.2)
[2022-08-29] MEDS: carvediloL 3.125 MG TAB PO ONE ×2 (06:30→08:19)
[2022-08-29] MEDS: ACETAMINOPHEN 500 MG TAB PO PRN (08:20)
[2022-08-29] MEDS ORDERED: POTASSIUM CL SA 10 MEQ TAB PO ONE (09:00)
[2022-08-29] MEDS: FOLIC ACID 1 MG TABLET PO SCH (09:17)
[2022-08-29] MEDS: ASPIRIN 81 MG CHEWABLE TABLET PO SCH (09:17)
[2022-08-29] MEDS: LOSARTAN POTASSIUM 50 MG TABLET PO SCH (09:17)
[2022-08-29] MEDS: CLOPIDOGREL 75 MG TABLET PO SCH (09:18)
[2022-08-29] MEDS ORDERED: LOSARTAN POTASSIUM 50 MG TABLET PO SCH (10:02)
[2022-08-29 11:39] VITALS: TEMP 97.5
[2022-08-29 12:40] VITALS: BP 151/72
--- NOTE | 2022-08-29 13:20 | P.DS ---
Admission Date: 08/26/22 Discharge Date: 08/29/22 Disposition: ROUTINE DISCHARGE Discharge Condition: GOOD Reason for Admission: Rule out CVA s/p TNK Consultations: 1. Neurology Hospital Course: DIAGNOSES: # Concern for Acute Cerberovascular Accident s/p Tenectelpase (08/26/2022) # Suspected Right Internal Capsule Lacunar Infarction (1 cm) # Hypertensive Urgency # Mild Hypokalemia (resolved) # Well-Circumscribed Right Breast Mass (9 mm) # Left Ovarian Cyst (3.3 cm) # Anxiety # Depression HOSPITAL COURSE: Ms. Lena Ambrocio is a pleasant 57 year old female with a past medical history significant for hypertension, anxiety, and depression who was admitted to the [facility] on 08/26/2022 for left upper extremity numbness/tingling and diplopia. She was given tenecteplase in the Emergency Department and admitted to the Medicine service. Her evaluation was notable for: a CT head with, "1 centimeter low-density area right internal capsule probably lacunar infarct. Age is indeterminate. MRI brain would helpful," a CT head angiogram with, "no acute abnormality is displayed," and a CT neck angiogram with, "mild plaque within the arteries. No high-grade stenosis seen." An MRI brain obtained 24 hours post- tenecteplase revealed, "no acute intracranial abnormality displayed." She did well and had complete resolution of her neurologic symptoms. She was kept in the hospital due to persistent hypertension and started on carvedilol and losartan with improvement in her pressure readings. She was started on aspirin, atorvastatin, and clopidogrel per Neurology. She was evaluated by Neurology and cleared for discharge with outpatient follow-up. Incidentally, her imaging studies revealed a well-circumscribed right-breast mass and a left ovarian cyst. Her and her were notified of these findings and advised to follow-up with her PCP and/or her [facility] for further evaluation. On 08/29/2022, she was seen on morning rounds and deemed medically stable for discharge. She was discharged with instructions to schedule follow-up ap pointments with her PCP (ELENA Hummel) in 3-5 days and with Neurology (Dr. Thomas) in 3-5 days. She was provided prescriptions for carvedilol and losartan. She and her were given the opportunity to ask questions and reported no further questions. Furthermore, all questions were answered to the best of my ability. A copy of this discharge summary will be sent to the above providers to faci litate continuity of care. Today, I personally spent 25 minutes on her case, of which greater than 50% of the time was spent in patient education, counseling, and coordination of care as described above. - Physical Exam General: Alert, In no apparent distress, Oriented x3 HEENT: Atraumatic, PERRLA, Mucous membr. moist/pink, EOMI, Sclerae nonicteric Neck: Supple, JVD not distended Respiratory: Clear to auscultation bilaterally, Normal air movement Cardiovascular: No edema, Regular rate/rhythm, Normal S1 S2, No gallops, No rubs, No murmurs Capillary refill: <2 Seconds Gastrointestinal: Normal bowel sounds, Soft and benign, Non-distended, No tenderness, No rebound, No guarding Musculoskeletal: No clubbing, Minimal tenderness (left elbow) Integumentary: No rashes Neurological: Normal speech, Normal strength at 5/5 x4 extr, Normal tone, Sensation intact, Cranial nerves 3-12 intact, Normal reflexes 2+, Normal affect NIH Stroke Scale 1a. Level of consciousness: 0 - Alert; keenly responsive 1b. LOC questions: 0 - Both questions right 1c. LOC commands: 0 - Performs both tasks 2. Best Gaze: 0 - Normal 3. Visual: 0 - No visual loss 4. Facial Palsy: 0 - Normal symmetry 5a. Motor left arm: 0 - No drift for 10 seconds 5b. Motor right arm: 0 - No drift for 10 seconds 6a. Motor left le - No drift for 5 seconds 6b. Motor right le - No drift for 5 seconds 7. Limb ataxia: 0 - No ataxia 8. Sensory: 0 - Normal; no sensory loss 9. Best Language: 0 - Normal; no aphasia 10. Dysarthria: 0 - Normal 11. Extinction and Inattention: 0 - No abnormality 12. Distal motor function: 0 - No abnormality Total Score: 0 Vital Signs/Physical Exam: Temp Pulse Resp BP Pulse Ox 97.5 F 69 18 151/72 H 94 08/29/22 11:38 08/29/22 12:39 08/29/22 11:38 08/29/22 12:39 08/29/22 11:38 Laboratory Data at Discharge: WBC 6.90 K/uL (4.3-10.9) 08/29/22 05:43 Hgb 12.7 g/dL (12.0-15.0) 08/29/22 05:43 Hct 37.6 % (36.0-45.0) 08/29/22 05:43 Plt Count 232 K/uL (152-406) 08/29/22 05:43 PT 11.8 SECONDS (9.5-12.5) 08/27/22 04:26 INR 1.07 08/27/22 04:26 APTT 32.4 SECONDS (24.3-36.9) 08/26/22 13:30 Sodium 141 mmol/L (136-145) 08/29/22 05:43 Potassium 3.6 mmol/L (3.5-5.1) 08/29/22 05:43 BUN 21 mg/dL (7-18) H 08/29/22 05:43 Creatinine 0.64 mg/dL (0.55-1.3) 08/29/22 05:43 Glucose 112 mg/dL (74-106) H 08/29/22 05:43 Phosphorus 2.9 mg/dL (2.5-4.9) 08/27/22 04:26 Magnesium 2.2 mg/dL (1.8-2.4) 08/27/22 04:26 Total Bilirubin 0.4 mg/dL (0.2-1.0) 08/29/22 05:43 AST 13 U/L (15-37) L 08/29/22 05:43 ALT 25 U/L (12-78) 08/29/22 05:43 Alkaline Phosphatase 103 U/L (45-117) 08/29/22 05:43 Triglycerides 232 mg/dL (<150) H 08/27/22 04:26 Cholesterol 179 mg/dL (<200) 08/27/22 04:26 HDL Cholesterol 38 mg/dL (40-60) L 08/27/22 04:26 Cholesterol/HDL Ratio 4.71 08/27/22 04:26 Home Medications: RX: Amlodipine Besylate 5 mg PO BEDTIME 08/26/22 RX: Codeine/APAP [Tylenol #3*] 1 tab PO Q6HP PRN 08/26/22 RX: Aspirin Chewable [Aspirin Chewable*] 81 mg PO DAILY tab.chew 08/28/22 RX: Atorvastatin Calcium [Lipitor] 40 mg PO BEDTIME #30 tab 08/28/22 RX: Clopidogrel Bisulfate [Plavix] 75 mg PO DAILY #30 tab 08/28/22 RX: Folic Acid 1 mg PO DAILY #30 08/28/22 RX: Escitalopram [Lexapro*] 10 tab PO DAILY 08/29/22 RX: Losartan Potassium [Cozaar*] 25 mg PO DAILY #30 tab 08/29/22 RX: carvediloL [Coreg*] 6.25 mg PO BID 6AM 6PM #60 tab 08/29/22 New Medications: RX: carvediloL [Coreg*] 6.25 mg PO BID 6AM 6PM #60 tab RX: Losartan Potassium [Cozaar*] 25 mg PO DAILY #30 tab RX: Folic Acid 1 mg PO DAILY #30 RX: Atorvastatin Calcium [Lipitor] 40 mg PO BEDTIME #30 tab RX: Clopidogrel Bisulfate [Plavix] 75 mg PO DAILY #30 tab Physician Discharge Instructions: 1. Please schedule a follow-up appointment with your PCP (ELENA Hummel) in 3-5 days 2. Please schedule a follow-up appointment with Neurology (Dr. Thomas) in 1-2 weeks Please check your blood pressure twice per day and write it down in a journal. Bring this to your appointment with ELENA Hummel and Dr. Thomas. If the top number of your blood pressure is persistently higher than 160 or you develop any other symptoms (for example, headaches, numbness/tingling, weakness), please call [phone] or return to the Emergency Department immediately. Diet: AHA Activity: Ad diomedes Followup: Max Thomas MD [ASSOCIATE-ACTIVE - CAN ADMIT] - 1-2 Weeks (Call for appointment) ANN HUMMEL [Primary Care Provider] - 2-3 Days (Call for appointment.) Time spent managing pt's care (in minutes): 25
[2022-08-29] MEDS ORDERED: carvediloL 6.25 MG TAB PO SCH (18:00)
== END 2022-08-29 16:16 | disposition home or self-care (01) | DRG 305 ==
LOC: ER 12:54 → ERHOLD 16:21 → 3RD-ICU 20:01 → 2ND 08-27 21:29 → 4TH 08-28 12:49
PROVIDERS: ADMIT Internal Medicine; ATTEND Internal Medicine
DX: I16.0 Hypertensive urgency (principal); E87.6 Hypokalemia; F32.A Depression, unspecified; N83.202 Unspecified ovarian cyst, left side; N63.0 Unspecified lump in unspecified breast; I10 Essential (primary) hypertension; H53.8 Other visual disturbances; H53.2 Diplopia; R53.1 Weakness; R20.2 Paresthesia of skin; R29.700 NIHSS score 0; Z86.73 Personal history of transient ischemic attack (TIA), and cerebral infarction without residual deficits; Z87.891 Personal history of nicotine dependence; Z79.899 Other long term (current) drug therapy; Z20.822 Contact with and (suspected) exposure to COVID-19
CPT/HCPCS: 36415; 70450; 70496; 70498; 70553; 71045; 71275; 74175; 80048; 80053; 80061; 82565; 82947; 83036; 83735; 84100; 84443; 85025; 85610; 85730; 87811; 92977; 93005; 93306; 96361; 96365; 97112; 97116; 97161; 97530; 99291; A9577; J0360; J3101; J7030; J7040; Q9967

== ENCOUNTER → 2025-01-20 | Day surgery (SDC) | payer BC ==
--- NOTE | 2025-01-20 12:21 | RAD REPORT ---
EXAMINATION: ULTRASOUND GUIDED VACUUM-ASSISTED RIGHT BREAST CORE NEEDLE BIOPSY RIGHT breast core needle biopsy; percutaneous, using ultrasound guidance. Image guided placement, metallic localization clip, percutaneous. Post Bx mammogram: Separately reported CLINICAL INDICATION:. R92.8 INFORMED CONSENT: The risks, benefits, alternatives, and potential complications of ultrasound guided vacuum-assisted RIGHT breast biopsy were discussed with the patient. An informed consent sheet was signed. The risks include but are not limited to the following: bleeding, infection, vascular injury, organ injury, pneumothorax, allergic reaction, and the need for emergent surgery/procedures. BIOPSY TARGET: Right breast 10:00 position hypoechoic mass measuring 1 cm, Lateral approach. NEEDLE: 12 gauge Celero vacuum-assisted core biopsy needle, 2 cores. SEDATION: None. COMPLICATIONS: None. TECHNIQUE: Appropriate audible time out was performed. The skin was prepped and draped in the normal fashion. The soft tissues were anesthetized with lidocaine. Utilizing real-time ultrasound guidance, a vacuum-assisted core biopsy needle was placed into the breast location described above wi th removal of tissue for pathology evaluation. Metallic clip was placed within the biopsied lesion under ultrasound guidance. Compression was held. Hemostasis was achieved. Sterile dressing was applie d. Patient tolerated the procedure well without immediate complication. The technologist was in the room with the radiologist throughout the procedure. IMPRESSION: 1.Successful ultrasound guided vacuum-assisted core biopsy of the RIGHT breast as described above. 2. Biopsy clip placed within the biopsied lesion.
--- NOTE | 2025-01-24 13:01 | RAD REPORT ---
EXAM DESCRIPTION: S/P CLIP PLACEMENT UNI COMPARISON: Procedural images of ultrasound-guided core biopsy of the same day. TECHNIQUE: Full field CC and MLO views of the right breast were obtained utilizing digital breast 3D tomosynthesis technique. Computer-aided detection was utilized. FINDINGS: Postbiopsy changes are present, with postbiopsy clip in satisfactory location in [close pro ximity to the target lesion. No hematoma. IMPRESSION: Postprocedural mammogram for clip localization as above. BI-Rads: Not indicated Density: B: There are scattered areas of fibroglandular density. *A negative x-ray report should not delay biopsy if a dominant or clinically suspicious mass is prese nt. 4.8% of cancers are not identified by x-ray. *A negative report may reinforce clinical impression. *Adenosis and dense breasts may obscure an underlying neoplasm. *False positive reports average 6-10%. Transcribed Date/Time: 01/24/2025 1:01 PM
== END ==
LOC: DS 09:28
PROVIDERS: ATTEND Surgery
DX: D24.1 Benign neoplasm of right breast (principal)
CPT/HCPCS: 19083; 77065; 88305

== ENCOUNTER 2025-08-17 10:28 | Emergency (ER) | payer BC ==
--- OUTSIDE RECORDS SUMMARY | 2025-08-17 10:30 | XMS REPORT | Continuity of Care Document ---
Author Name Unknown Address [address] [facility] [address] [place] [address] [facility] [address] [facility] [address] [place] [address] Care Team Providers Care Superintendent Meter Tests Name Role Phone Unavailable Unavailable Unavailable Problems Condition Name Condition Details Condition Category Status Onset Date Resolution Date Last Treatment Date Treating Clinician Comments Source Essential hypertensi on Essential Hypertensi on Problem Active 12-27 00:00: 00 [facility] [facility] Mammograph y abnormal Mammograph y Abnormal Problem Active 2023-11 00:00: 00 [place] [facility] Vitamin D deficiency Vitamin D Deficiency Problem Active 2023-11 00:00: 00 [place] [facility] Hypertrigl yceridemia Hypertrigl yceridemia Problem Active 2023-11 00:00: 00 [place] [facility] Hyperlipid emia Hyperlipid emia Problem Active 2023-11 00:00: 00 [place] [facility] Prediabete s Prediabete s Problem Active 2023-11 00:00: 00 [place] [facility] Rheumatoid factor detected Rheumatoid Factor Detected Problem Active 2023-11 00:00: 00 [place] [facility] Snoring Snoring Problem Active 2023-11 00:00: 00 [place] [facility] Ex-smoker Ex-smoker Problem Active 2023-11 00:00: 00 [place] [facility] Menopause Menopause Problem Active 2023-11 00:00: 00 [place] [facility] Cerebrovas cular accident Cerebrovas cular Accident Problem Active 2023-11 00:00: 00 [facility] Allergies, Adverse Reactions, Alerts Allergy Name Allergy Type Status Severity Reaction(s) Onset Date Inactive Date Treating Clinician Comments Source Ilir il Allergy to substanc e Active Cough [facility] Medications Ordered Medication Name Filled Medication Name Start Date Stop Date Current Medication? Ordering Clinician Indication Dosage Frequency Signature (SIG) Comments Components Source citalopram 20 mg tablet TAKE ONE (1) TABLET BY MOUTH EVERY DAY IN THE MORNING FOR 90 DAYS, FOR MOODS. citalopram 20 mg tablet TAKE ONE (1) TABLET BY MOUTH EVERY DAY IN THE MORNING FOR 90 DAYS, FOR MOODS. No 1 Q1D citalopram 20 mg tablet TAKE ONE (1) TABLET BY MOUTH EVERY DAY IN THE MORNING FOR 90 DAYS, FOR MOODS. [facility] metoprolol tartrate 50 mg tablet TAKE ONE (1) TABLET(S) BY MOUTH TWICE A DAY DIRECTED FOR 90 DAYS FOR HIGH BLOOD PRESSURE. metoprolol tartrate 50 mg tablet TAKE ONE (1) TABLET(S) BY MOUTH TWICE A DAY DIRECTED FOR 90 DAYS FOR HIGH BLOOD PRESSURE. No 1 BID metoprolol tartrate 50 mg tablet TAKE ONE (1) TABLET(S) BY MOUTH TWICE A DAY DIRECTED FOR 90 DAYS FOR HIGH BLOOD PRESSURE. [facility] cholecalcif rebecca (vitamin D3) 1,250 mcg (50,000 unit) capsule TAKE ONE (1) CAPSULE(S) BY MOUTH EVERY WEEK FOR 28 DAYS. cholecalcif rebecca (vitamin D3) 1,250 mcg (50,000 unit) capsule TAKE ONE (1) CAPSULE(S) BY MOUTH EVERY WEEK FOR 28 DAYS. No 1capsul e(s) Q1W cholecalci ferol (vitamin D3) 1,250 mcg (50,000 unit) capsule TAKE ONE (1) CAPSULE(S) BY MOUTH EVERY WEEK FOR 28 DAYS. [facility] meloxicam 7.5 mg tablet TAKE ONE (1) TABLET EVERY DAY BY ORAL ROUTE NEEDED FOR 15 DAYS, FOR PAIN IN HAND. meloxicam 7.5 mg tablet TAKE ONE (1) TABLET EVERY DAY BY ORAL ROUTE NEEDED FOR 15 DAYS, FOR PAIN IN HAND. No 1 Q1D meloxicam 7.5 mg tablet TAKE ONE (1) TABLET EVERY DAY BY ORAL ROUTE NEEDED FOR 15 DAYS, FOR PAIN IN HAND. [facility] Vital Signs Vital Name Observation Time Observation Value Comments S ource BP Systolic 2025-08-01 00:00:00 130 mm[Hg] [facility] Body Weight 2025-08-01 00:00:00 3543 [oz_av] [facility] BMI (Body Mass Index) 2025-08-01 00:00:00 40.5 kg/m2 [facility] BP Diastolic 2025-08-01 00:00:00 95 mm[Hg] [facility] Height 2025-08-01 00:00:00 62 [in_i] [facility] BMI (Body Mass Index) 2025-05-24 00:00:00 40.1 kg/m2 [facility] BP Systolic 2025-05-24 00:00:00 150 mm[Hg] [facility] Height 2025-05-24 00:00:00 62 [in_i] [facility] Body Weight 2025-05-24 00:00:00 3512 [oz_av] [facility] BP Diastolic 2025-05-24 00:00:00 90 mm[Hg] [facility] BP Systolic 2025-05-15 00:00:00 140 mm[Hg] [facility] BMI (Body Mass Index) 2025-05-15 00:00:00 40.4 kg/m2 [facility] Height 2025-05-15 00:00:00 62 [in_i] [facility] BP Diastolic 2025-05-15 00:00:00 71 mm[Hg] [facility] Body Weight 2025-05-15 00:00:00 3536 [oz_av] [facility] BP Systolic 2025-04-20 00:00:00 162 mm[Hg] [facility] Height 2025-04-20 00:00:00 62 [in_i] [facility] Body Weight 2025-04-20 00:00:00 3520 [oz_av] [facility] BMI (Body Mass Index) 2025-04-20 00:00:00 40.2 kg/m2 [facility] BP Diastolic 2025-04-20 00:00:00 82 mm[Hg] [facility] BP Diastolic 2025-02-27 00:00:00 98 mm[Hg] [facility] BP Systolic 2025-02-27 00:00:00 178 mm[Hg] [facility] Height 2025-02-27 00:00:00 62 [in_i] [facility] BP Systolic 2025-01-26 00:00:00 162 mm[Hg] [facility] Height 2025-01-26 00:00:00 62 [in_i] [facility] BP Diastolic 2025-01-26 00:00:00 94 mm[Hg] [facility] BMI (Body Mass Index) 2024-12-27 00:00:00 39.9 kg/m2 [facility] BP Systolic 2024-12-27 00:00:00 155 mm[Hg] [facility] Height 2024-12-27 00:00:00 62 [in_i] [facility] Body Weight 2024-12-27 00:00:00 3488 [oz_av] [facility] BP Diastolic 2024-12-27 00:00:00 100 mm[Hg] [facility] BP Diastolic 2024-11-28 00:00:00 92 mm[Hg] [facility] Height 2024-11-28 00:00:00 62 [in_i] [facility] Body Weight 2024-11-28 00:00:00 3552 [oz_av] [facility] BMI (Body Mass Index) 2024-11-28 00:00:00 40.6 kg/m2 [facility] BP Systolic 2024-11-28 00:00:00 142 mm[Hg] [facility] BMI (Body Mass Index) 2024-10-18 00:00:00 40.2 kg/m2 [facility] Body Weight 2024-10-18 00:00:00 3520 [oz_av] [facility] Height 2024-10-18 00:00:00 62 [in_i] [facility] BP Systolic 2024-10-18 00:00:00 172 mm[Hg] [facility] BP Diastolic 2024-10-18 00:00:00 92 mm[Hg] [facility] Body Weight 2024-10-12 00:00:00 3520 [oz_av] [facility] BP Diastolic 2024-10-12 00:00:00 88 mm[Hg] [facility] BMI (Body Mass Index) 2024-10-12 00:00:00 40.2 kg/m2 [facility] BP Systolic 2024-10-12 00:00:00 144 mm[Hg] [facility] Height 2024-10-12 00:00:00 62 [in_i] [facility] BP Diastolic 2024-10-04 00:00:00 92 mm[Hg] [facility] BP Systolic 2024-10-04 00:00:00 164 mm[Hg] [facility] Height 2024-10-04 00:00:00 62 [in_i] [facility] Procedures Procedure Date / Time Performed Performing Clinician Source XR, ribs, unilateral, w/ PA chest 2025-04-20 00:00:00 [facility] electrocardiogram 2025-04-20 00:00:00 [facility] US, breast, unilateral 2024-11-10 00:00:00 [facility] MAMMO, screening, bilateral 2024-10-12 00:00:00 [facility] LDCT, chest, for lung cancer screening 2024-10-12 00:00:00 [facility] XR, hand, 3 or more view 2024-10-04 00:00:00 [facility] Breast Biopsy [facility] Encounters Start Date/Time End Date/Time Encounter Type Admission Type Attending Clinicians Care Facility Care Department Encounter ID Source 2025-08-01 00:00:00 2025-08-01 00:00:00 Brittany Melo BOMB TECHNICIAN-C: [address], [place] [address] , Ph. [facility], [facility], BOMB TECHNICIAN-C [id number] 2025-05-24 00:00:00 2025-05-24 00:00:00 Brittany Melo BOMB TECHNICIAN-C: [address], [place] [address] , Ph. [phone] [facility], [facility], BOMB TECHNICIAN-C [id number] 0625 [facility] 2025-05-15 00:00:00 2025-05-15 00:00:00 Brittany Melo BOMB TECHNICIAN-C: [address], [place] [address] , Ph. [facility], [facility], BOMB TECHNICIAN-C [id number] 0616 [facility] ty Hospita [facility] 2025-04-20 00:00:00 2025-04-20 00:00:00 Brittany Melo BOMB TECHNICIAN-C: [address], [place] [address] , Ph. [facility], [facility], BOMB TECHNICIAN-C [id number] 0522 [facility] 2025-02-27 00:00:00 2025-02-27 00:00:00 Brittany Melo BOMB TECHNICIAN-C: [address], [place] [address] , Ph. [phone] [facility], BOMB TECHNICIAN-C [id number] 0331 [place] [facility] 2025-01-26 00:00:00 2025-01-26 00:00:00 Brittany Melo BOMB TECHNICIAN-C: [address], [place] [address] , Ph. [facility], [facility], [facility]-C [address] 0227 [place] [facility] 2024-12-27 00:00:00 2024-12-27 00:00:00 [facility]: [address], [place] [address] , Ph. [facility], [facility], [facility]-C [id number] 0128 [place] [facility] 2024-11-28 00:00:00 2024-11-28 00:00:00 Brittany MeloSERENAP-C: [address], [place] [address] , Ph. [facility], [facility], [facility]-C [id number] 1230 [place] [facility] 2024-10-18 00:00:00 2024-10-18 00:00:00 Brittany MeloREGIS-C: [address], [place] [address] , Ph. [facility], [facility], BOMB TECHNICIAN-C [id number] 1119 [place] [facility] 2024-10-12 00:00:00 2024-10-12 00:00:00 [facility] REG[facility]: [address], [place] [address] , Ph. [facility], [facility], [facility]- [phone] 1113 [facility] 2024-10-04 00:00:00 2024-10-04 00:00:00 [facility]: [address], [place] [address] , Ph. [facility], [facility], [facility] [id number] 1105 [facility] Results Test Description Test Time Test Comments Results Result Co mments Source [facility]
[2025-08-17] MEDS ORDERED: ONDANSETRON 4 MG/2 ML VIAL ONE (11:32)
[2025-08-17] MEDS ORDERED: NA CHLORIDE 0.9% 1,000 ML ONE (11:33)
[2025-08-17] MEDS ORDERED: MORPHINE 4 MG/ML SYR ONE (11:33)
[2025-08-17 11:40] LABS: Absolute Lymphocytes (CBC) 1.7 K/uL (0.7-4.9); Hematocrit 35.5 % (36.0-45.0); Hemoglobin 11.9 g/dL (12.0-15.0); MCH 26.1 pg (27.0-35.0); MCHC 33.7 g/dL (32.0-36.0); MCV 77.5 fL (80-100); MPV 6.5 fL (7.6-11.3); Nucleated RBC Absolute Count 0.0 (0-0); Nucleated Red Blood Cells % 0.1 % (0-0); RBC Red Blood Cell Count 4.58 M/uL (3.86-4.86); White Blood Count 7.70 thou/uL (4.3-10.9)
[2025-08-17 11:45] LABS: Urine Crystals Unidentified Few /HPF (None Seen); Urine Culture Reflex Order REFLEXED; Urine Microscopic Reflex YN ORDER UMIC; Urine WBC Clump Occasional /HPF (None Seen); Urine Yeast (Budding) Trace /HPF (None Seen)
[2025-08-17 12:04] LABS: Potassium 3.2 mEq/L (3.5-5.1)
[2025-08-17 12:05] LABS: ALT/SGPT 26.0 U/L (13-56); AST/SGOT 14.0 U/L (15-37); Albumin 3.6 g/dL (3.4-5.0); Albumin/Globulin Ratio 1.1 (1.1-1.8); Alkaline Phosphatase 95.0 U/L (45-117); Anion Gap 8.2 mEq/L (5.0-15.0); BUN Blood Urea Nitrogen 18.0 mg/dL (7-18); Globulin 3.3 g/dL (2.3-3.5); Glucose Level 95.0 mg/dL (74-106); Lipase 33.0 U/L (13-75)
--- NOTE | 2025-08-17 13:04 | RAD REPORT ---
EXAMINATION: CT ABDOMEN AND PELVIS WITH CONTRAST CLINICAL INDICATION: LLQ;Abd pain TECHNIQUE: CT abdomen and pelvis was performed, after the administration of IV contrast, [facility]. Axial, sagittal and coronal reconstructions were obtained. One or more of the following dose reduction techniques were used: Automated exposure control, adjustment of the mA and k V according to patient size, and iterative reconstruction. Unless otherwise specified, incidental findings do not require dedicated imaging follow-up. COMPARISON: 08/26/2022 FINDINGS: LOWER CHEST: Mild linear atelectasis in both posterior lung bases. LIVER: Mild fatty liver is present. No focal lesion or biliary dilatation is seen. Grossly unremark able gallbladder. SPLEEN: Normal size. No focal lesion. PANCREAS: No mass, ductal dilation, or radha-pancreatic fluid. ADRENALS: Mild nodularity right adrenal gland, unchanged 17 mm left adrenal mass. KIDNEYS: Normal size and contour. No hydronephrosis. GASTROINTESTINAL TRACT: No evidence of free air, significant intra-abdominal free fluid, bowel obstru ction or abscess. Moderate sigmoid diverticulosis coli is present. No finding to indicate diverticulitis. APPENDIX: Normal appendix. LYMPH NODES: No lymphadenopathy. MUSCULOSKELETAL: Grade 1-2 anterolisthesis L5 on S1 with bilateral chronic spondylolysis. ADDITIONAL FINDINGS: Mildly complicated appearing cystic mass in the inferior posterior left pelvis m easuring 6.1 cm. IMPRESSION: 6.1 cm complicated appearing left adnexal cystic mass suspected. In this age group, this is very conc erning for ovarian neoplasm. Recommend short interval gynecologic follow-up assessment. Pelvic ultrasound and/or MRI pelvis may also be useful for further imaging. Moderate diverticulosis coli of the sigmoid colon without findings to indicate diverticulitis.
[2025-08-17] MEDS ORDERED: CEFTRIAXONE 1000 MG/VIAL ONE (13:18)
--- NOTE | 2025-08-17 16:12 | RAD REPORT ---
Transvaginal Study Probe CLINICAL INDICATION: Female 60 years old Ovarian Mass TECHNIQUE: Real-time ultrasonography of the pelvis was performed transvaginally and transabdominally. Color and spectral Doppler evaluation of the ovaries was performed. [id number]. COMPARISON: CT 08/17/2025 FINDINGS: UTERUS AND CERVIX: The uterus measures 8.4 x 3.5 x 4.7 cm (cervix to fundus x AP x transverse). Nabot hian cysts noted. Endometrial echo complex was not measured. RIGHT OVARY: 4.4 x 2.8 cm complex cystic lesion in the right adnexa which is in the superficial from the right ovary is noted. Vascular flow present. LEFT OVARY: Multiseptated left ovarian lesion which measures approximately 5.8 x 4.5 x 5 cm. This is indistinguishable from the left ovary. Vascular flow present. FREE FLUID: No free fluid. IMPRESSION: Multiseptated bilateral adnexal lesions which are indistinguishable from the ovaries and concerning f or cystic neoplasms, either benign or malignant. Recommend gynecologic referral.
--- NOTE | 2025-08-17 16:15 | EDPHYS ---
Physician Documentation [facility] Name: Lena Townsend Age: 60 yrs Sex: Female : 1965 Arrival Date: 08/17/2025 Time: 10:28 Bed 18 Private MD: ED Physician Laquita Salvador HPI: 08/17 18:07 This 60 yrs old Female presents to ER via Ambulatory with complaints of dr5 Abdominal Pain. 18:07 Patient is a 60-year-old female with history of hypertension coming in with left lower dr5 quadrant abdominal pain that started yesterday. Patient reports that the pain is localized in denies fever, chest pain, shortness of breath, nausea, vomiting, diarrhea. Patient states that the pain does not radiate to her back.. Historical: - Allergies: 10:47 No Known Allergies; ss - Home Meds: 10:47 Metoprolol [Active]; ss - PMHx: 10:47 Hypertensive disorder; ss - PSHx: 10:47 None; ss - Immunization history:: Adult Immunizations up to date. - Infectious Disease History:: Denies. - Social history:: Smoking status: Patient denies any tobacco usage or history of. ROS: 18:07 Constitutional: as per hpi dr5 Exam: 18:07 Constitutional: This is a well developed, well nourished patient who is awake, alert, dr5 and in no acute distress. Head/Face: Normocephalic, atraumatic. Eyes: Pupils equal round and reactive to light, extra-ocular motions intact. Lids and lashes normal. Conjunctiva and sclera are non-icteric and not injected. Cornea within normal limits. Periorbital areas with no swelling, redness, or edema. Neck: Trachea midline, no thyromegaly or masses palpated, and no cervical lymphadenopathy. Supple, full range of motion without nuchal rigidity, or vertebral point tenderness. No Meningismus. Chest/axilla: Normal chest wall appearance and motion. Nontender with no deformity. No lesions are appreciated. Cardiovascular: Regular rate and rhythm with a normal S1 and S2. Normal PMI, no JVD. No pulse deficits. Respiratory: Lungs have equal breath sounds bilaterally, clear to auscultation. No rales, rhonchi or wheezes noted. No increased work of breathing, no retractions or nasal flaring. Abdomen/GI: Soft, non-tender, non-distended in RUQ, RLQ, and LUQ. Patient has pinpoint tenderness to palpation on left lower quadrant. Back: No spinal tenderness. No costovertebral tenderness. Full range of motion. Skin: Warm, dry with normal turgor. Normal color with no rashes, no lesions, and no evidence of cellulitis. MS/ Extremity: Pulses equal, no cyanosis. Neurovascular intact. Full, normal range of motion. Neuro: Awake and alert, GCS 15, oriented to person, place, time, and situation. Cranial nerves II-XII grossly intact. Motor strength 5/5 in all extremities. Sensory grossly intact. Cerebellar exam normal. Normal gait. Vital Signs: 10:46 BP 209 / 88; Pulse 71; Resp 15; Temp 98(O); Pulse Ox 96% on R/A; Weight 97.98 kg; ss Height 5 ft. 1 in. ; Pain 6/10; 12:10 BP 117 / 79; Pulse 68; Resp 18; Pulse Ox 95% on R/A; kj2 13:23 BP 166 / 86; Pulse 69; Resp 18; Pulse Ox 100% on R/A; kj2 14:30 BP 166 / 84; Pulse 68; Resp 20; Pulse Ox 98% on R/A; kj2 16:00 BP 172 / 72; Pulse 69; Resp 18; Pulse Ox 97% ; kj2 10:46 Body Mass Index 40.81 (97.98 kg, 154.94 cm) ss 10:46 Pain Scale: Adult ss Satya Coma Score: 12:08 Eye Response: spontaneous(4). Motor Response: obeys commands(6). Verbal Response: dd2 oriented(5). Total: 15. MDM: 10:30 Medical Screening Exam initiated dr5 18:07 Differential diagnosis: diverticulitis, urinary tract infection, diverticulosis, dr5 ovarian cyst, ovarian neoplasm. Data reviewed: vital signs, nurses notes, lab test result(s), amylase and lipase, CBC, white blood cell count, hemoglobin, hematocrit, platelets, electrolytes, sodium, potassium, chloride, serum bicarbonate, BUN, creatinine, serum glucose, urinalysis, UPT: negative radiologic studies, CT scan, ultrasound. Consideration of Admission/Observation Escalation of care including admission/observation considered. Considered admission but patient has stable cyst versus neoplasm. I considered the following discharge prescriptions or medication management in the emergency department I discussed and recommended Over The Counter medications, Medications were administered in the Emergency Department. See MAR. Historians other than the Patient: Spouse/Significant Other: . Care significantly affected by the following chronic conditions: Hypertension. Care significantly affected by the following Social Determinants of Health: Poor access to healthcare and/or lack of insurance, Poor access to transportation, Problems related to employment. Counseling: I had a detailed discussion with the patient and/or guardian regarding the historical points, exam findings, and any diagnostic results supporting the discharge/admit diagnosis, the presence of at least one elevated blood pressure reading (>120/80) during this emergency department visit, lab results, radiology results, the need for outpatient follow up, for definitive care, a family practitioner, to return to the emergency department if symptoms worsen or persist or if there are any questions or concerns that arise at home. Medication response: Rocephin. Response to treatment: the patient's symptoms have resolved after treatment. Special discussion: Based on the patient's history, exam and DX evaluation, there is no indication for emergent intervention or inpatient TX. It is understood by the patient/guardian that if the SXs persist or worsen they need to return immediately for re-evaluation. I discussed with the patient/guardian in detail that at this point there is no indication for admission to the hospital. It is understood, however, that if the symptoms persist or worsen the patient needs to return immediately for re-evaluation. Based on the history and exam findings, there is no indication for further emergent testing or inpatient evaluation. I discussed with the patient/guardian the need to see the OB Gyne specialist for further evaluation of the symptoms. ED course: Patient found to have possible ovarian cyst versus cancer. All labs and diagnostics were printed and explained in detail to patient and her spouse. I sat in the room while patient called Dr. Lui to have appointment moved closer. Patient has appointment tomorrow 08/18/2025 at 9 AM. Recommended patient take labs with her and ultrasound and CT with her. All questions answered. Strict ER precautions given. Patient is agreeable to plan.. 08/17 11:39 Order name: Comprehensive Metabolic Panel; Complete Time: 12:53 EDMS 08/17 11:39 Order name: Lipase; Complete Time: 12:53 EDMS 08/17 11:39 Order name: CBC with Automated Diff; Complete Time: 11:44 EDNC 08/17 11:39 Order name: UA Rfx Asif Cult if indicated; Complete Time: 11:51 EDNC 08/17 11:39 Order name: Test, Urine; Complete Time: 11:44 EDNC 08/17 11:49 Order name: Urine Culture EDNC 08/17 10:50 Order name: CT Abd/Pelvis - IV Contrast Only; Complete Time: 13:10 rust 08/17 13:11 Order name: US Transvaginal Study (Probe); Complete Time: 16:13 rust 08/17 10:50 Order name: IV Saline Lock; Complete Time: 11:42 rust 08/17 10:50 Order name: Labs collected and sent; Complete Time: 11:42 dr5 Administered Medications: 11:42 Drug: Ondansetron IVP 4 mg IVP once; over 2 minutes Route: IVP; Site: right antecubital;dd2 16:37 Follow up: Response: No adverse reaction kj2 11:42 Drug: morphine IVP or IV 4 mg IVP once over 4 mins Route: IVP; Infused Over: 4 mins; dd2 Site: right antecubital; 16:37 Follow up: Response: No adverse reaction kj2 11:42 Drug: NS 0.9% IV 1000 ml IV at 1 bolus Per protocol; to be given as a bolus over 60 dd2 minutes Route: IV; Rate: 1 bolus; Site: right antecubital; 16:36 Follow up: IV Status: Completed infusion; IV Intake: 1000ml kj2 13:00 Drug: Rocephin IV 1 grams IV at per protocol once; Given slow IV push per pharmacy kj2 instructions Route: IV; Rate: per protocol; Site: right antecubital; 16:36 Follow up: IV Status: Completed infusion; IV Intake: 10ml kj2 Disposition Summary: 08/17/25 16:14 Discharge Ordered Notes: Location: Home dr5 Condition: Stable dr5 Diagnosis - Other ovarian cysts dr5 Followup: dr5 - With: Emergency Department - When: As needed - Reason: Worsening of condition Followup: dr5 - With: Ai Lui MD - When: 1 - 2 days - Reason: Recheck today's complaints, Continuance of care, Re-evaluation by your physician Discharge Instructions: - Discharge Summary Sheet ss - Ovarian Cyst dr5 Forms: - Work release form ss - Medication Reconciliation Form dr5 - Patient Portal Instructions dr5 - Leadership Thank You Letter dr5 Prescriptions: - Ibuprofen 800 mg Oral Tablet - take 1 tablet ORAL route every 12 hours As needed take with food; 20 tablet; dr5 Refills: 0, Product Selection Permitted Signatures: Dispatcher [employer] EDMS Erlinda Schaefer RN RN ss Jesenia Nur RN RN kj2 HAILEY CAMPA RN RN dd2 Magnus Boykin, FOREIGN TRADE TEACHER-C FOREIGN TRADE TEACHER-Cdr5 Corrections: (The following items were deleted from the chart) 13:05 10:50 UA Rfx Asif Cult if indicated+U.LAB.BRZ ordered. EDMS EDMS 13: 10:50 Test, Urine+UC.LAB.BRZ ordered. EDMS EDMS 13: 10:50 CBC+H.LAB.BRZ ordered. EDMS EDMS 13: 10:50 COMPREHENSIVE METABOLIC PANEL+C.LAB.BRZ ordered. EDMS EDMS 13: 10:50 LIPASE+C.LAB.BRZ ordered. EDMS EDMS
--- NOTE | 2025-08-17 16:15 | ER ---
Nurse[facility] Name: Lena Townsend Age: 60 yrs Sex: Female : 1965 Arrival Date: 08/17/2025 Time: 10:28 Bed 18 Private MD: Diagnosis: Other ovarian cysts Presentation: 08/17 10:46 Chief complaint: Patient states: L lower quadrant pain that began yesterday. ss Coronavirus screen: Client denies travel out of the [place] in the last 14 days. Ebola Screen: Patient denies exposure to infectious person. Patient denies travel to an Ebola-affected area in the 21 days before illness onset. Initial Sepsis Screen: Does the patient meet any 2 criteria? No. Patient's initial sepsis screen is negative. Does the patient have a suspected source of infection? No. Patient's initial sepsis screen is negative. Risk Assessment: Do you want to hurt yourself or someone else? Patient reports no desire to harm self or others. Onset of symptoms was August 16, 2025. 10:46 Method Of Arrival: Ambulatory ss 10:46 Acuity: MONICA 3 ss Historical: - Allergies: 10:47 No Known Allergies; ss - Home Meds: 10:47 Metoprolol [Active]; ss - PMHx: 10:47 Hypertensive disorder; ss - PSHx: 10:47 None; ss - Immunization history:: Adult Immunizations up to date. - Infectious Disease History:: Denies. - Social history:: Smoking status: Patient denies any tobacco usage or history of. Screenin:08 [facility] ED Fall Risk Assessment (Adult) History of falling in the last 3 months, dd2 including since admission No falls in past 3 months (0 pts) Confusion or Disorientation No (0 pts) Intoxicated or Sedated No (0 pts) Impaired Gait No (0 pts) Mobility Assist Device Used No (0 pt) Altered Elimination No (0 pt) Score/Fall Risk Level 0 - 2 = Low Risk Oriented to surroundings, Maintained a safe environment, Educated pt \T\ family on fall prevention, incl call for assistance when getting out of bed, Assessed \T\ reinforced patient's understanding of fall precautions, Hourly rounding (assess needs \T\ fall precautionary measures) done. Abuse screen: Denies threats or abuse. Denies injuries from another. Nutritional screening: No deficits noted. Tuberculosis screening: No symptoms or risk factors identified. Assessment: 12:08 General: Appears in no apparent distress. uncomfortable, Behavior is calm, cooperative, dd2 appropriate for age. Pain: Complains of pain in left lower quadrant Pain currently is 8 out of 10 on a pain scale. Neuro: No deficits noted. Cardiovascular: No deficits noted. Respiratory: No deficits noted. GI: Abdomen is non-distended, Bowel sounds present X 4 quads. Abdomen is tender to palpation in left lower quadrant. : Reports pain in left lower quadrant(s). EENT: No deficits noted. No signs and/or symptoms were reported regarding the EENT system. Derm: No deficits noted. No signs and/or symptoms reported regarding the dermatologic system. Musculoskeletal: No deficits noted. No signs and/or symptoms reported regarding the musculoskeletal system. Circulation, motion, and sensation intact. Range of motion: intact in all extremities. 12:10 Reassessment: Patient appears in no apparent distress at this time. Patient and/or kj2 family updated on plan of care and expected duration. Pain level reassessed. Patient is alert, oriented x 3, equal unlabored respirations, skin warm/dry/pink. 13:10 Reassessment: Patient appears in no apparent distress at this time. Patient and/or kj2 family updated on plan of care and expected duration. Pain level reassessed. Patient is alert, oriented x 3, equal unlabored respirations, skin warm/dry/pink. 14:10 Reassessment: Patient appears in no apparent distress at this time. Patient and/or kj2 family updated on plan of care and expected duration. Pain level reassessed. Patient is alert, oriented x 3, equal unlabored respirations, skin warm/dry/pink. 15:00 Reassessment: Patient appears in no apparent distress at this time. Patient and/or kj2 family updated on plan of care and expected duration. Pain level reassessed. Patient is alert, oriented x 3, equal unlabored respirations, skin warm/dry/pink. 16:00 Reassessment: Patient appears in no apparent distress at this time. Patient and/or kj2 family updated on plan of care and expected duration. Pain level reassessed. Patient is alert, oriented x 3, equal unlabored respirations, skin warm/dry/pink. Vital Signs: 10:46 BP 209 / 88; Pulse 71; Resp 15; Temp 98(O); Pulse Ox 96% on R/A; Weight 97.98 kg; ss Height 5 ft. 1 in. ; Pain 6/10; 12:10 BP 117 / 79; Pulse 68; Resp 18; Pulse Ox 95% on R/A; kj2 13:23 BP 166 / 86; Pulse 69; Resp 18; Pulse Ox 100% on R/A; kj2 14:30 BP 166 / 84; Pulse 68; Resp 20; Pulse Ox 98% on R/A; kj2 16:00 BP 172 / 72; Pulse 69; Resp 18; Pulse Ox 97% ; kj2 10:46 Body Mass Index 40.81 (97.98 kg, 154.94 cm) ss 10:46 Pain Scale: Adult ss Satya Coma Score: 12:08 Eye Response: spontaneous(4). Motor Response: obeys commands(6). Verbal Response: dd2 oriented(5). Total: 15. ED Course: 10:30 Patient arrived in ED. im 10:30 Magnus Boykin FNP-C is PHCP. dr5 10:30 Laquita Salvador MD is Attending Physician. dr5 10:47 Triage completed. ss 10:47 Arm band placed on right wrist. ss 11:41 UA Rfx Asif Cult if indicated Sent. dd2 11:41 Test, Urine Sent. dd2 11:41 Comprehensive Metabolic Panel Sent. dd2 11:41 Lipase Sent. dd2 11:41 CBC with Automated Diff Sent. dd2 11:42 No provider procedures requiring assistance completed. Initial lab(s) drawn, by md, dd2 sent to lab. Urine collected: clean catch specimen, cloudy. Inserted saline lock: 20 gauge in right antecubital area, using aseptic technique. Blood collected. Flushed with 10 mL NS. Patient maintains SpO2 saturation greater than 95% on room air. 12:08 Patient has correct armband on for positive identification. Call light in reach. Side dd2 rails up X2. Client placed on continuous cardiac and pulse oximetry monitoring. NIBP monitoring applied. Door closed. Noise minimized. Warm blanket given. Pillow given. Verbal reassurance given. 12:10 Provided Education on: call light. kj2 12:25 Jesenia Nur RN is Primary Nurse. kj2 12:54 CT Abd/Pelvis - IV Contrast Only In Process Unspecified. EDMS 15:36 US Transvaginal Study (Probe) In Process Unspecified. EDMS 16:14 Ai Lui MD is Referral Physician. dr5 16:36 IV discontinued, intact, bleeding controlled, No redness/swelling at site. Pressure kj2 dressing applied. Administered Medications: 11:42 Drug: Ondansetron IVP 4 mg IVP once; over 2 minutes Route: IVP; Site: right antecubital;dd2 16:37 Follow up: Response: No adverse reaction kj2 11:42 Drug: morphine IVP or IV 4 mg IVP once over 4 mins Route: IVP; Infused Over: 4 mins; dd2 Site: right antecubital; 16:37 Follow up: Response: No adverse reaction kj2 11:42 Drug: NS 0.9% IV 1000 ml IV at 1 bolus Per protocol; to be given as a bolus over 60 dd2 minutes Route: IV; Rate: 1 bolus; Site: right antecubital; 16:36 Follow up: IV Status: Completed infusion; IV Intake: 1000ml kj2 13:00 Drug: Rocephin IV 1 grams IV at per protocol once; Given slow IV push per pharmacy kj2 instructions Route: IV; Rate: per protocol; Site: right antecubital; 16:36 Follow up: IV Status: Completed infusion; IV Intake: 10ml kj2 Medication: 12:08 VIS not applicable for this client. dd2 Intake: 16:36 IV: 10ml; Total: 10ml. kj2 16:36 IV: 1000ml; Total: 1010ml. kj2 Outcome: 16:14 Discharge ordered by . dr5 16:35 Discharged to home ambulatory, with family, kj2 16:35 Condition: stable 16:35 Discharge instructions given to patient, family, Instructed on discharge instructions, follow up and referral plans. Demonstrated understanding of instructions, follow-up care, medications, Prescriptions given X 1, 16:37 Patient left the ED. kj2 Signatures: Dispatcher [employer] EDMS Erlinda Schaefer RN RN Elda Cerrato Krystal, RN RN kj2 HAILEY CAMPA RN RN dd2 Magnus Boykin, CASINO GAMING INSPECTOR-C CASINO GAMING INSPECTOR-Cdr5 Corrections: (The following items were deleted from the chart) 13: 11:41 Test, Urine+UC.LAB.BRZ drawn and sent. dd2 EDMS 13: 11:41 UA Rfx Asif Cult if indicated+U.LAB.BRZ drawn and sent. dd2 EDMS 13: 11:41 CBC+H.LAB.BRZ drawn and sent. dd2 EDMS 13: 11:41 COMPREHENSIVE METABOLIC PANEL+C.LAB.BRZ drawn and sent. dd2 EDMS 13: 11:41 LIPASE+C.LAB.BRZ drawn and sent. dd2 EDMS
[2025-08-17 16:45] VITALS: TEMP 98
[2025-08-17 16:50] VITALS: BP 172/72; O2SAT 97
== END 2025-08-17 16:37 | disposition home or self-care (01) ==
LOC: ER 10:28
DX: N83.292 Other ovarian cyst, left side (principal)
CPT/HCPCS: 96365; 96361; 87088; 85025; 81001; 87086; 36415; 81025; 87077; 87186; 83690; 80053; 74177; 76830; 96375; 99284; 96366; Q9967; J2405; J7030; J0696